=== PATIENT | female | born 1995 | race Caucasian/White ===

== ENCOUNTER 2021-02-02 21:21 | Emergency (ER) | payer OTHER, SELFPAY ==
--- NOTE | ~2021-02-02 | CT_ITS ---
EXAMINATION: CT abdomen pelvis w con DATE: 02/03/2021 02:07 INDICATION: Right lower quadrant abdominal pain TECHNIQUE: Computed tomography (CT) of the abdomen and pelvis was performed with 100 cc Omnipaque 350 intravenous contrast. Automated exposure control and iterative reconstruction technique were employe d. Exam dose: 1691.04 mGy-cm total exam DLP. COMPARISON: None. FINDINGS: Morbid obesity. Included lower lung zones are clear. No pericardial or pleural effusion. Cardiomegaly. Small sliding hiatal hernia. The liver, gallbladder, bile ducts, pancreas, pancreatic duct, spleen, and adrenal glands and kidneys appear unremarkable. No urinary tract calculus or hydroureteronephrosis. The uterus, adnexal areas a nd urinary bladder are unremarkable. Normal caliber of the abdominal aorta. No intraperitoneal or retroperitoneal or pelvic mass lesion or adenopathy or ascites. Mild colonic diverticulosis; no CT evidence of diverticulitis. The appendix is not identified. There is no evidence of appendicitis. No bowel obstruction, bowel wall thickening, pneumatosis or intraperi toneal free air. Small fat-containing umbilical hernia. Included skeletal structures are unremarkable. IMPRESSION: No significant abnormality Reviewed, dictated and finalized at [facility]. Reviewed, dictated and finalized at [facility]. IMPRESSION: No significant abnormality
[2021-02-02 21:55] VITALS: BP 138/84; PULSE 94; RESP 18; TEMP 36.9; O2SAT 100
[2021-02-02 23:01] LABS: Basophils Percent Auto 0.3 % (0.2-1.2); Eosinophils Absolute Auto 0.1 K/mm3 (0-0.3); Eosinophils Percent Auto 1.3 % (0-4.4); Hematocrit 41.5 % (37.0-47.0); Hemoglobin 13.3 g/dL (12.0-15.0); Immature Granulocyte Absolute 0.03 K/mm3 (0.00-0.031); Immature Granulocyte Percent A 0.3 % (0-0.5); Lymphocytes Percent Auto 37.2 % (18.3-44.2); Mean Corpuscular Hemoglobin 28.1 pg (26-34); Mean Corpuscular Volume 87.7 fl (80-100); Mean Platelet Volume 10.6 fl (7.4-10.4); Monocytes Absolute Auto 0.9 K/mm3 (0.1-0.6); Monocytes Percent Auto 8.3 % (2.6-8.5); Neutrophils Absolute Auto 5.4 K/mm3 (1.3-6.7); Neutrophils Percent Auto 52.6 % (45.5-73.1); Platelet Count Result 278 k/mm3 (150-375); Red Blood Count 4.73 M/mm3 (4.2-5.4); Red Cell Distribution Width 14.6 % (11.5-14.5); White Blood Count 10.2 K/mm3 (4.5-10.0)
[2021-02-02 23:15] LABS: Alanine Aminotransferase 38 U/L (4-35); Albumin Level 4.1 g/dL (3.5-5.1); Alkaline Phosphatase 122 U/L (38-126); Anion Gap 7 mmol/L (8-16); Aspartate Amino Transferase 30 U/L (14-36); Bilirubin,Total 0.4 mg/dL (0.2-1.3); Blood Urea Nitrogen 14 mg/dL (7-17); Calcium 8.8 mg/dL (8.4-10.2); Carbon Dioxide 28 mmol/L (22-30); Chloride 104 mmol/L (98-107); Estimated CRCL calculation 139 ml/min; Estimated Glomerular Filt Rate > 60; Glucose 98 mg/dL (65-110); Lipase 124 U/L (23-300); Potassium 4.3 mmol/L (3.4-5.0); Sodium 139 mmol/L (137-145)
[2021-02-03 00:14] VITALS: BP 124/83; PULSE 85; RESP 22; TEMP 36.7; O2SAT 98
--- NOTE | 2021-02-03 00:20 | ED.ABDPAIN ---
HPI - Abdominal Pain General Chief Complaint: Abdominal Pain Stated Complaint: right lower quadrant pain Time Seen by Provider: 02/02/21 23:43 Source: patient History of Present Illness HPI narrative: Patient presents with right lower quadrant abdominal pain. Reports symptoms started today today and has been worsening. Pain is sharp, constant, no radiation, is alleviated with pressure to the area worse with walking around. Reports her symptoms associated with nausea and vomiting she denies diarrhea or fevers. She denies prior abdominal surgeries denies any urinary symptoms vaginal bleeding or vaginal discharge Related Data Allergies Allergy/AdvReac Type Severity Reaction Status Date / Time No Known Allergies Allergy Verified 02/03/21 01:11 Review of Systems Review of Systems: CONSTITUTIONAL: Denies fever, chills, or sweats. EYES: Denies visual changes, redness, or discharge. ENT: Denies rhinorrhea, congestion, sore throat, or otalgia. CARDIOVASCULAR: Denies chest pain, palpitations, or edema. RESPIRATORY: Denies cough or dyspnea. GASTROINTESTINAL: Patient ports abdominal pain and nausea and vomiting GENITOURINARY: Denies dysuria or hematuria. SKIN: Denies rash or itching. MUSCULOSKELETAL: Denies back pain, joint pain, or myalgia. NEUROLOGIC: Denies headache, numbness, dizziness, or weakness. PSYCHIATRIC: Denies anxiety or depression. All systems reviewed & are unremarkable except as noted in HPI and below PMFSH Social History Social History (Updated 02/03/21 @ 00:22 by Pankaj Maldonado MD) Smoking status: Never smoker Substance use type: does not use Exam Narrative: GENERAL: Well-appearing, well-nourished, and in no acute distress. HEAD: Normocephalic, atraumatic. EYES: PERRLA and EOMI. ENT: Nares clear, no rhinorrhea or epistaxis. Mucous membranes moist. NECK: Supple. No masses. No JVD ABDOMEN: Moderate tenderness in the right lower quadrant soft, nondistended. EXTREMITIES: Normal range of motion. No edema. SKIN: Warm, dry, no rash. NEURO: No focal deficits. Alert and oriented x3. PSYCH: Normal mood and affect. Course Reevaluation(s) Reevaluation #1: Patient resting comfortably results and plan reviewed with patient. Patient comfortable with outpatient plan. Date: 02/03/21 Time: 03:06 Vital Signs Vital signs: Vital Signs Temperature 36.9 C 02/02/21 21:55 Pulse Rate 94 02/02/21 21:55 Respiratory Rate 18 02/02/21 21:55 Blood Pressure 138/84 02/02/21 21:55 Pulse Oximetry 100 02/02/21 21:55 Temperature 36.7 C 02/03/21 00:14 Pulse Rate 91 02/03/21 02:54 Respiratory Rate 18 02/03/21 02:54 Blood Pressure 145/80 H 02/03/21 02:54 Pulse Oximetry 98 02/03/21 00:14 MDM - Abdominal Pain MDM Narrative Medical decision making narrative: H&P as above, vss, pt looks clinically well, exam tenderness in the right lower quadrant, labs clinically unremarkable, img clinically unremarkable, additional labs/img considered, symptomatic relief available as needed, on reevaluation pt continues to looks clinically well. Symptoms remain of unclear etiology, dns appendicitis, perforation, bowel obstruction, ureteral stone, pancreatitis, cholecystitis, pyelonephritis. plan to tx/monitor as op w/ pcm f/u findings/plan discussed with pt, pt agree/comfortable with plan, return precautions given Lab Data Result diagrams: 02/02/21 22:51 02/02/21 22:51 Labs: Lab Results 02/02/21 02/02/21 02/02/21 Range/Units 22:51 22:51 22:51 WBC 10.2 H (4.5-10.0) K/mm3 RBC 4.73 (4.2-5.4) M/mm3 Hgb 13.3 (12.0-15.0) g/dL Hct 41.5 (37.0-47.0) % MCV 87.7 (80-100) fl MCH 28.1 (26-34) pg MCHC 32.0 (32-36) g/dl RDW 14.6 H (11.5-14.5) % Plt Count 278 (150-375) k/mm3 MPV 10.6 H (7.4-10.4) fl Immature Gran % (Auto) 0.3 (0-0.5) % Neut % (Auto) 52.6 (45.5-73.1) % Lymph % (Auto) 37.2 (18.3-44.2) % Morrow % (Auto) 8.3 (2.6
[2021-02-03 00:23] LABS: Beta HCG Quantitative < 2.39 mIU/ML
[2021-02-03 00:42] LABS: Add Urine Microscopic? YES; Appearance Urine Clear (Clear); Bilirubin Urine Negative (Negative); Blood Urine Negative (Negative); Color Urine Yellow (Yellow); Glucose Urine UA Negative (Negative); Ketones Urine Negative (Negative); Leukocyte Esterase Ur Negative LEU/UL (Negative); Mucus Urine Rare /lpf; Nitrate Urine Negative (Negative); Protein Urine Negative (Negative); Specific Grav Ur 1.023 (1.001-1.035); Squamous Epithelial Cell Urine Many /hpf (Few); WBC Urine 0-3 /hpf
--- NOTE | 2021-02-03 01:18 | PC.NURSE ---
This RN called lab, spoke with wojciech, to add on urine test to specimen in lab.
[2021-02-03 01:28] LABS: Pregnancy On Board Control Positive; Urine Pregnancy Test Negative
--- NOTE | 2021-02-03 01:49 | PC.NURSE ---
Pt to imaging at this time.
[2021-02-03 02:54] VITALS: BP 145/80; PULSE 91; RESP 18
== END 2021-02-03 03:31 | disposition home or self-care (01) ==
PROVIDERS: Emergency Medicine; Emergency Provider Emergency Medicine
DX: R10.31 Right lower quadrant pain (principal)
CPT/HCPCS: 36415; 74177; 80053; 81001; 81025; 83690; 84702; 85025; 99284; Q9967

== ENCOUNTER 2022-01-09 17:40 | Emergency (ER) | payer SELFPAY ==
[2022-01-09 17:46] VITALS: BP 137/91; PULSE 88; RESP 16; TEMP 37.1; O2SAT 100
[2022-01-09 17:53] VITALS: BP 137/91; PULSE 88; RESP 16; TEMP 37.1; O2SAT 100
--- NOTE | 2022-01-09 18:08 | ED.URI ---
HPI - URI/Sore Throat General Chief Complaint: Upper Respiratory Infection Stated Complaint: Sore Throat Time Seen by Provider: 01/09/22 18:08 History of Present Illness HPI Narrative: 26-year-old female presented for complaint of sore throat and fever today. Endorses postnasal drainage, occasional nonproductive cough and pain with coughing. She denies shortness of breath, wheezing, nausea, vomiting. She denies sick contacts. She has not taken anything for symptoms today. Related Data Allergies Allergy/AdvReac Type Severity Reaction Status Date / Time No Known Allergies Allergy Verified 01/09/22 17:52 Review of Systems Review of Systems: ROS negative except as in HPI [facility] Social History Social History Smoking status: Never smoker Substance use type: does not use Exam Narrative: GENERAL: Well-appearing. EYES: conjunctivae clear ENT: Mucous membranes moist. TMs pearly payan with normal light reflex bilaterally; no tragal tenderness. Oropharynx erythematous without lesions. No drooling, no hoarseness, no trismus, uvula midline. No tripod positioning, hot potato voice, or soft palate swelling. NECK: Supple. No lymphadenopathy CHEST: Clear to auscultation, breath sounds equal. HEART: Regular rate and rhythm. No murmur heard. SKIN: Warm, dry, no rash. NEURO: Alert and oriented x3. Course Course Emergency Course: Patient is aware of diagnosis, understands and agrees to treatment plan. Anticipatory guidance given. Patient agrees to follow-up as directed and is aware of reasons to seek care at the emergency department. Portions of this record may have been created with voice recognition software Level of Care: Express Care Visit Vital Signs Vital signs: Vital Signs Temperature 98.7 F 01/09/22 17:46 Pulse Rate 88 01/09/22 17:46 Respiratory Rate 16 01/09/22 17:46 Blood Pressure 137/91 H 01/09/22 17:46 Pulse Oximetry 100 01/09/22 17:46 Oxygen Delivery Room Air 01/09/22 17:46 Temperature 98.7 F 01/09/22 17:53 Pulse Rate 88 01/09/22 17:53 Respiratory Rate 16 01/09/22 17:53 Blood Pressure 137/91 H 01/09/22 17:53 Pulse Oximetry 100 01/09/22 17:53 Oxygen Delivery Room Air 01/09/22 17:53 MDM - URI/Sore Throat MDM Narrative Medical decision making narrative: strep result reviewed with pt. Advise supportive treatments and s/s to go to the ER. Patient is appropriate for outpatient treatment and follow-up. Differential Diagnosis Differential diagnosis: Likely upper respiratory infection, viral infection and pharyngitis Lab Data Labs: Strep Screen Presumptive Negative *(Reference Range: Negative)* Discharge Plan Discharge Clinical Impression: Pharyngitis Patient Disposition: Home, Self-Care Condition: Stable Additional Instructions: Rapid strep swab was negative today You will be notified in a few days if the culture comes back positive for strep, and appropriate antibiotics will be called in at that time. if symptoms are due to a viral illness, it is not treated with antibiotics. Viral symptoms can be present for up to 10-14 days. Recommend Flonase spray and Zyrtec for sinus drainage Cough syrup may cause drowsiness; avoid driving or take it at night time. Tylenol 1000mg every 8 hours as needed for pain/fever Soft foods, cool liquids, warm tea. Gargle with warm saltwater twice a day. Rest and stay hydrated. --Follow up with your PCP if symptoms are not improving, or sooner if symptoms are worsening. Go to the ER immediately if you cannot swallow your saliva, trouble breathing/wheezing, throat swelling, pain is persistent and severe Prescriptions: New prednisone 20 mg tablet 20 mg PO BIDWMEAL Qty: 5 0RF Follow-up/Referrals: PHYSICIAN,CONCRETE PRECAST MOULDER [Primary Care Provider] - Stand Alone Forms: Work/School Release
== END 2022-01-09 18:19 | disposition home or self-care (01) ==
PROVIDERS: Emergency Provider Nurse Practitioner Family
DX: J02.9 Acute pharyngitis, unspecified (principal)
CPT/HCPCS: 87081; 87880; 99213; G0463

== ENCOUNTER → 2022-12-06 08:04 | Outpatient (CLI) | payer OTHER, SELFPAY ==
--- NOTE | ~2022-12-06 | MMUS_ITS ---
EXAMINATION: MM diagnostic jesús BI w [place], US breast LT limited HISTORY: Palpable, painful, and enlarging lump in the subareolar aspect of the left breast TECHNIQUE: Craniocaudal, mediolateral, and mediolateral oblique 3-D tomosynthesis images of the breas ts were performed and synthetic 2-D images were generated. CAD analysis was submitted and interpreted . High resolution limited left breast ultrasound was performed. COMPARISON: None, baseline BREAST PARENCHYMAL COMPOSITION: The breasts are almost entirely fatty. FINDINGS: MAMMOGRAPHIC FINDINGS: Right breast: No suspicious mass, calcification, or architectural distortion are identified to sugges t malignancy. Left breast: There is a 7 mm oval, equal density mass in the subareolar aspect of the left breast cor responding to the palpable abnormality of concern. ULTRASOUND: There is an 8 mm x 4 mm oval, parallel, hypoechoic mass with questionable linear margins at the 7:30 location of the breast near the nipple corresponding to the palpable abnormality of concern. IMPRESSION: 1. Indeterminate left breast mass. 2. Although finding could reflect a complicated cyst, given the history of a painful and enlarging ma ss, ultrasound-guided biopsy is recommended. BI-RADS category 4, suspicious findings. Reviewed, dictated and finalized at [facility]. IMPRESSION: 1. Indeterminate left breast mass. 2. Although finding could reflect a complicated cyst, given the history of a pa inful and enlarging mass, ultrasound-guided biopsy is recommended. BI-RADS category 4, suspicious findings.
== END ==
PROVIDERS: PCP Obstetrics & Gynecology; Visit Provider Obstetrics & Gynecology
DX: N63.42 Unspecified lump in left breast, subareolar (principal)
CPT/HCPCS: 76642; 77062; 77066; G0279

== ENCOUNTER 2023-01-04 09:00 | Outpatient (CLI) | payer OTHER, SELFPAY ==
--- NOTE | ~2023-01-04 | US_ITS ---
US breast LT limited DATE: 01/04/2023 10:25 INDICATION: Patient presented for biopsy of 8 x 4 mm oval parallel hypoechoic mass at 7:30 near nippl e, reported on 12/06/2022 limited left breast ultrasound examination TECHNIQUE: Real-time and color flow imaging targeted to 7:30 subareolar area COMPARISON: 12/06/2022 diagnostic bilateral mammogram and limited left breast ultrasound FINDINGS: The area of interest is diminished in size, currently measuring 2 x 4.5 compared to 4.4 x 6 .1 x 7.7 mm on 12/06/2022. The margins are circumscribed. There is some central fatty density which may indicate that this is a lymph node. There is no suspicious shadowing. No internal vascularity. The sonographic features and t he interval decrease in size since 12/16/2022 are consistent with benign process. IMPRESSION: BI-RADS Category 2: Benign finding The lesion of interest has diminished in size since 12/06/2022 and exhibits benign sonographic features ; the biopsy was therefore canceled. Reviewed, dictated and finalized at [facility]. Reviewed, dictated and finalized at [facility]. IMPRESSION: BI-RADS Category 2: Benign finding The lesion of interest has diminished in size since 12/06/2022 and exhibits benig n sonographic features; the biopsy was therefore canceled.
== END 2023-01-04 09:01 | disposition home or self-care (01) ==
PROVIDERS: PCP Obstetrics & Gynecology; Visit Provider Surgery
DX: N63.20 Unspecified lump in the left breast, unspecified quadrant (principal)
CPT/HCPCS: 76642

== ENCOUNTER 2023-10-09 14:12 | Emergency (ER) | payer MEDICAID, SELFPAY ==
[2023-10-09] VITALS (13 sets, daily range): BP systolic 137–162; BP diastolic 64–98; PULSE 82–118; RESP 14–27; TEMP 36.6; O2SAT 95–100
--- NOTE | ~2023-10-09 | CT_ITS ---
EXAMINATION: CT abdomen pelvis w con DATE: 10/09/2023 16:49 INDICATION: RLQ pain TECHNIQUE: Computed tomography (CT) of the abdomen and pelvis was performed with 100 mL Omnipaque-350 intravenous contrast. Automated exposure control and iterative reconstruction technique were employe d. The dose-length product was 1792.16 mGy-cm. COMPARISON: 02/03/2021. FINDINGS: Exam limited by beam hardening and quantum mottle from body habitus. Lower thorax: Mild cardiomegaly. Minimal dependent and basilar scar/atelectasis. Liver: Normal. Biliary/Gallbladder: Gallbladder is normal. No bile duct dilation. Pancreas: No mass or duct dilation. Spleen: Normal. Adrenals:No mass. Kidneys: No suspicious mass, obstructing stone, or hydronephrosis. GI tract: No small or large bowel dilation. Appendix not visualized. Mild scattered diverticulosis wi thout diverticulitis. Mesentery/Peritoneum: No ascites, mass, or free air. Retroperitoneum: No mass. Pelvis: Pelvic organs are within normal limits. Soft Tissues: Small uncomplicated fat-containing umbilical hernia. Bones: No acute osseous finding. IMPRESSION: No acute abdominopelvic process detected. Reviewed, dictated and finalized at [facility].
--- NOTE | ~2023-10-09 | US_ITS ---
EXAMINATION: US abdomen limited DATE: 10/09/2023 17:57 INDICATION: ab pain TECHNIQUE: Multiple grayscale and Doppler ultrasound images of limited portions of the abdomen were o btained. COMPARISON: CT abdomen pelvis, same date. FINDINGS: Examination limited by body habitus. The pancreas was not visualized. The liver is poorly v isualized. Normal hepatopetal flow in the main portal vein. The gallbladder is normal with no abnorma l wall thickening, pericholecystic fluid or stones. The common bile duct measures 6 mm. There was no sonographic Chen sign. IMPRESSION: Limited evaluation, pancreas not visualized and liver are poorly visualized. No sonographic abnormality detected the gallbladder. Reviewed, dictated and finalized at location [facility].
--- NOTE | 2023-10-09 15:20 | ED.NAVMDI ---
HPI - Nausea/Vomiting/Diarrhea General Chief complaint: Nausea/Vomiting/Diarrhea <Kisha Anguiano PA-C - Last Filed: 10/11/23 18:08> Stated complaint: vomiting abd pain <Kisha Anguiano PA-C - Last Filed: 10/11/23 18:08> Time Seen by Provider: 10/09/23 15:20 <Kisha Anguiano PA-C - Last Filed: 10/11/23 18:08> Focused HPI: This is a 28 year old female that presents to the emergency department for upper abdominal pain. Ongoing over the last couple of days. Reports pain in the right upper quadrant. Associated nausea and vomiting. Worse after eating. Reports intermittent fevers as well. GENERAL: Well-appearing, obese, and in no acute distress. HEAD: Normocephalic, atraumatic. CHEST: Clear to auscultation. ?No respiratory distress. HEART: Regular rate and rhythm.? NEURO: ?Alert and oriented x3. Patient screened in triage and initial orders placed.? ?Additional care and disposition to be based upon?diagnostic testing and treatment. <Kisha Anguiano PA-C - Last Filed: 10/11/23 18:08> History of Present Illness HPI Narrative: 28-year-old female presenting emergency department for evaluation of right-sided abdominal pain with associated nausea and vomiting. Patient is worse after eating. Patient denies any pain with urination. Patient does have a prior history of kidney stones but states this is different. <Shane Bradley MD - Last Filed: 10/09/23 21:07> Related Data Allergies/Adverse reactions: Allergies Allergy/AdvReac Type Severity Reaction Status Date / Time No Known Allergies Allergy Verified 12/25/22 10:15 <Kisha Anguiano PA-C - Last Filed: 10/11/23 18:08> Review of Systems Review of Systems: CONSTITUTIONAL: Reports fever GASTROINTESTINAL: Reports abdominal pain, nausea, vomiting <Kisha Anguiano PA-C - Last Filed: 10/11/23 18:08> All systems reviewed & are unremarkable except as noted in HPI and below <Shane rBadley MD - Last Filed: 10/09/23 21:07> [facility] Past Medical History Medical History: Medical History (Updated 10/11/23 @ 18:08 by Kisha Anguiano PA-C) Anxiety Bipolar 1 disorder Depression History of kidney stones <Kisha Anguiano PA-C - Last Filed: 10/11/23 18:08> Surgical History Surgical History: Surgical History History of surgery on arm [place] teeth extracted <Kisha Anguiano PA-C - Last Filed: 10/11/23 18:08> Family History Family History: Family History Grandparent Breast cancer Other Breast cancer Other Cerebrovascular accident Diabetes mellitus Heart disease Hypertension <Kisha Anguiano PA-C - Last Filed: 10/11/23 18:08> Social History Social History: Social History Smoking status: Never smoker Alcohol intake: never Substance use type: does not use Living arrangements: with family Occupation/Education: occupation 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 EYES: PERRLA/EOMI, conjunctivae clear. NOSE: Normal no drainage EARS:TMS clear with good light reflex. THROAT: Pharynx clear, no exudate. NECK: Supple. No adenopathy, no masses. RESPIRATORY: Airway patent, respirations nonlabored. Clear to auscultation bilaterally, no rales, rhonchi, wheezing. CARDIOVASCULAR: Regular rate and rhythm without murmurs rubs or gallops. ABDOMINAL: tenderness to right upper and right lower quadrant. greater in right lower quadrant MUSCULOSKELETAL: Moves all extremities. Strength/ROM intact, No edema, No calf tenderness. NEURO: Alert. Cranial nerves II through XII intact. grossly intact SKIN: Warm, dry. Normal Color <Shane Bradley MD - Last Filed: 10/09/23 21
[2023-10-09 15:40] LABS: Basophils Percent Auto 0.3 % (0.2-1.2); Eosinophils Absolute Auto 0.2 K/mm3 (0-0.3); Eosinophils Percent Auto 2.4 % (0-4.4); Hematocrit 40.8 % (37.0-47.0); Hemoglobin 12.8 g/dL (12.0-15.0); Immature Granulocyte Absolute 0.02 K/mm3 (0.00-0.031); Immature Granulocyte Percent A 0.3 % (0-0.5); Lymphocytes Percent Auto 33.6 % (18.3-44.2); Mean Corpuscular HGB Conc 31.4 g/dl (32-36); Mean Corpuscular Hemoglobin 26.9 pg (26-34); Mean Corpuscular Volume 85.9 fl (80-100); Mean Platelet Volume 10.7 fl (7.4-10.4); Monocytes Absolute Auto 0.6 K/mm3 (0.1-0.6); Monocytes Percent Auto 9.3 % (2.6-8.5); Neutrophils Absolute Auto 3.4 K/mm3 (1.3-6.7); Neutrophils Percent Auto 54.1 % (45.5-73.1); Platelet Count Result 247 k/mm3 (150-375); Red Blood Count 4.75 M/mm3 (4.2-5.4); Red Cell Distribution Width 15.3 % (11.5-14.5); White Blood Count 6.3 K/mm3 (4.5-10.0)
[2023-10-09 15:53] LABS: Appearance Urine Cloudy (Clear); Bacteria Urine 3+ /hpf; Bilirubin Urine Negative (Negative); Blood Urine 1+ (Negative); Color Urine Yellow (Yellow); Glucose Urine UA Negative (Negative); Ketones Urine Trace mg/dL (Negative); Leukocyte Esterase Ur Trace LEU/UL (Negative); Nitrate Urine Negative (Negative); Non Pathogenic Casts 0-2; Protein Urine Trace mg/dL (Negative); Specific Grav Ur 1.022 (1.001-1.035); Squamous Epithelial Cell Urine Many /hpf (Few); pH Urine 5.5 (5.0-9.0)
[2023-10-09 15:57] LABS: Alanine Aminotransferase 87 U/L (6-35); Alkaline Phosphatase 113 U/L (38-126); Anion Gap 6 mmol/L (4-12); Aspartate Amino Transferase 76 U/L (14-36); Bilirubin,Total 0.5 mg/dL (0.2-1.3); Blood Urea Nitrogen 8 mg/dL (7-17); Calcium 8.6 mg/dL (8.4-10.2); Carbon Dioxide 29 mmol/L (22-30); Chloride 103 mmol/L (98-107); Estimated CRCL calculation 158 ml/min; Estimated Glomerular Filt Rate > 60; Glucose 111 mg/dL (65-110); Lipase 70 U/L (23-300); Potassium 3.5 mmol/L (3.4-5.0); Sodium 138 mmol/L (137-145)
[2023-10-09 15:59] LABS: Add Urine Microscopic? YES
[2023-10-09] MEDS: ONDANSETRON INJ 4 MG/2 ML VIAL IV PUSH (16:34)
[2023-10-09] MEDS: HYDROmorphone HCL INJ (*CRX) 1 MG/ML SYR 0.5 MG IV PUSH (16:35)
== END 2023-10-09 18:30 | disposition home or self-care (01) ==
PROVIDERS: Physician Assistant; Emergency Provider Emergency Medicine
DX: R10.10 Upper abdominal pain, unspecified (principal); Z87.442 Personal history of urinary calculi
CPT/HCPCS: 36415; 74177; 76705; 80053; 81001; 81025; 83690; 85025; 87086; 87088; 96374; 96375; 99284; J1170; J2405; Q9967

== ENCOUNTER 2024-06-17 15:14 | Emergency (ER) | payer OTHER, SELFPAY ==
[2024-06-17] VITALS (11 sets, daily range): BP systolic 122–153; BP diastolic 57–104; PULSE 94–108; RESP 13–20; TEMP 36.9; O2SAT 94–100
--- NOTE | ~2024-06-17 | CT_ITS ---
EXAMINATION: CT brain wo con DATE: 06/17/2024 16:33 INDICATION: Head injury, syncope, lightheaded dizziness . TECHNIQUE: Computed tomography (CT) of the head was performed without intravenous contrast. The mA wa s adjusted according to patient size. Iterative reconstruction technique was employed. The dose-lengt h product was 681.00 mGy-cm. COMPARISON: None. FINDINGS: No acute intracranial hemorrhage or extra-axial fluid collection. No hydrocephalus, mass, or herniation. No acute ischemic infarct. Unremarkable dural venous sinus attenuation. No acute osseous abnormality. The aerated spaces are clear. IMPRESSION: No acute intracranial process. Reviewed, dictated and finalized at location K. LOPE MAKER
--- OUTSIDE RECORDS SUMMARY | 2024-06-17 15:17 | XMS_ITS | Data Portability ---
Author Organization [facility] , [facility] Address [address] [place] [address] Assessment No assessment recorded. Plan of Treatment Reminders Order Date Submit Date Provider Last Modified By Organization Details Last Modified Time Details Appointments None recorded. Lab prolactin, serum 2023 kdominick [address] [facility], [address] [place], [address], 15:28:15 test, urine 2023 024 kdominick 1 [facility], [address] [place], [address], 4 15:28:16 unlisted lab - pcos evaluation (high index suspicion) (hc) 2023 024 kdominick [address] [facility], [address] [place], [address], 4 15:28:15 HPV E6+E7 mRNA, qualitative PCR, cervix 2023 024 kdominick [address] [facility], [address] [place], [address], 4 15:28:15 pap, LB 2023 LESLI [facility], [address] [facility], [place], [address], 14:46:27 Referral None recorded. Procedures None recorded. Surgeries None recorded. Imaging US, pelvis, complete 2023 024 [email or web address] [email or web address] [facility], [address] [facility], [place], [address], 5 12:13:19 Medication Orders None recorded. Patient TargetsNo targets recorded. Patient InstructionsNo instructions recorded. Reason for Referral None Reported. Results Created Date Observation Date Name Description Value Unit Range Abnormal Flag Note LastModifiedBy Organization Detail LastModifiedTime 02/22/2002/23/2024 PCOS EVALU ATION (HIGH INDEX SUSPI CION) ([facility] ) DHEA-S 175.8 mcg/d L 25.9 - 460.2 normal [place], [address], 02/23/2024 10:03:34 02/22/2002/23/2024 PCOS EVALU ATION (HIGH INDEX SUSPI CION) ([facility] ) FSH 5.4 mIU/m L Refer ence Range s are for femal es aged 18 years - Adult Magdalena l Menst ruati ng Femal e: Folli cular phase : 2.5-1 0.2 mIU/m L Mid-C ycle Peak: 3.4-3 3.4 mIU/m L Lutea l phase : 1.5-9 .1 mIU/m L Pregn ant: <0.3 mIU/m L Post- menop ausal : 23.0- 116.6 mIU/m L [place], [address], 02/23/2024 10:03:34 02/22/2002/23/2024 PCOS EVALU ATION (HIGH INDEX SUSPI CION) ([facility] ) LH 5.76 U/L Refer ence Range s are for femal es aged 18 years - Adult Magdalena l Menst ruati ng Femal e: Folli cular phase : 1.9-1 2.5 mIU/m L Mid-C ycle Peak: 8.7-7 6.3 mIU/m L Lutea l phase : 0.5-1 6.9 mIU/m L Pregn ant: <0.1- 1.5 mIU/m L Post- menop ausal : 15.9- 54.0 mIU/m L Contr acept chidi: 0.7-5 .6 mIU/m L Not Available [address], [address], 02/23/2024 10:03:34 02/22/2002/23/2024 PCOS EVALU ATION (HIGH INDEX SUSPI CION) ([facility] ) TSH 2.37 mIU/L 0.55 - 4.78 normal Refer ence Range Femal e aged 18-Ad ult: 0.55- 4.78 Pregn indigo Refer ence Range s First Trime ster 0.26- 2.66 Secon d Trime ster 0.55- 2.73 Third Trime ster 0.43- 2.91 Not Available [facility] [address] [place] [address], [address], 02/23/2024 10:03:34 02/22/20 24 02/23/2024 PCOS EVALU ATION (HIGH INDEX SUSPI CION) ([facility] ) T4, free 1.03 NG/dL 0.89 - 1.76 normal Not Available [address], [address], 02/23/2024 10:03:34 02/22/2002/23/2024 PROLA CTIN prolactin 7.2 NG/mL Refer ence Range s Femal e aged 18-Ad ult Nonpr egnan t: 2.8-2 9.2 ng/mL Pregn ant: 9.7-2 08.5 ng/mL Post- menop ausal : 1.8-2 0.3 ng/mL Pregn indigo, lacta tion, and the admin istra tion of oral contr acept chidi can incre ase prola ctin nikita ntrat ions. Not Available [facility] [address] [place] [address], [address], 02/23/2024 10:03:35 02/22/2002/25/2024 HPV HIGH RISK HPV high risk Negati ve negati ve normal The HPV High Risk assay is inten ded for use as co-te sting with cytol ogy and not as a subst itute for regul ar cervi kenrick cytol ogy scree leigh. This assay is not inten ded for use as a scree leigh devic e for women under age 30 with magdalena l cervi kenrick cytol ogy. Not Available [facility] [address] [place], [address], 02/25/2024 18:22:54 02/22/2002/29/2024 THINP REP TIS PAP clinical information: normal Routi ne exam Not Available [address] [place], [address], 02/29/2024 14:46:27 02/22/2002/29/2024 THINP REP TIS PAP LMP: normal NONE GIVEN Not Available [address] [place], [address], 02/29/2024 14:46:27 02/22/2002/29/2024 THINP REP TIS PAP prev. Pap: normal NONE GIVEN Not Available [address] [place], [address], 02/29/2024 14:46:27 02/22/2002/29/2024 THINP REP TIS PAP prev. BX: normal NONE GIVEN Not Available [address] [address] [place], [address], 02/29/2024 14:46:27 02/22/2002/29/2024 THINP REP TIS PAP source: normal Cervi x Not Available [address] [address] [place], [address], 02/29/2024 14:46:27 02/22/2002/29/2024 THINP REP TIS PAP statement of adequacy: normal Satis facto ry for evalu ation . Endoc ervic al/tr ansfo rmati on zone compo nent prese nt. Age and/o r menst rual statu s not provi ded Not Available [address] [address] [place], [address], 02/29/2024 14:46:27 02/22/2002/29/2024 THINP REP TIS PAP interpretati on/result: normal Cytol ogy Resul ts: Negat christian for intra epith elial lesio n or malig rohan . Not Available [address] [address] [place], [address], 02/29/2024 14:46:27 02/22/2002/29/2024 THINP REP TIS PAP comment: normal This case could not be evalu ated with compu ter tamiko rosalio techn ology . The slide was shannan brady scremary cara accor ding to routi ne proce dures . Not Available [address] [address] [place], [address], 02/29/2024 14:46:27 02/22/2002/29/2024 THINP REP TIS PAP cytotechnolo gist: normal PCM, CT( CP) CT Scree leigh Locat ion: [address] [address] [address] [place] [address] Not Available [address] [address] [place], [address], 02/29/2024 14:46:27 02/22/2002/29/2024 THINP REP TIS PAP comment EXPLA NATOR Y NOTE: The Pap is a scree leigh test for cervi kenrick cance r. It is not a diagn ostic test and is subje ct to false negat christian and false posit christian resul ts. It is most relia ble when a satis facto ry sampl e, regul jose e obtai cara, is submi tted with relev ant clini kenrick findi ngs and histo ry, and when the Pap resul t is evalu ated along with histo cristian and curre nt clini kenrick infor matrosalia n. Not Available [facility] [address], [place], [address], 02/29/2024 14:46:27 02/22/20 24 02/22/2024 pregn indigo test, urine HCG negati ve Not Available [facility] [address] [facility], [place], [address], 02/22/2024 14:36:33 03/16/20 24 03/11/2024 US pelvi c non OB comp ta+TV [facility] [place] [address] [facility] [address] [place] [address] EXAMIN ATION: Pelvic Ultras ound REPORT DATE: 2023 9:04 AM INDICA TION: SECOND MIRA AMENOR MARGARITO Date of last menstr ual period : 024 COMPAR SHANKAR(S ): None. TECHNI QUE: Transa bdomin al and transv aginal ultras ound of the pelvis . Adnexa l duplex imagin g perfor med. FINDIN GS: Limite d assess ment due to patien t body habitu s. UTERUS : Anteve rted, measur ing 7.0 x 2.8 x 4.6 cm. Myomet rium: Normal . Cervix : Normal . Endome trium: 1.0 cm in thickn ess. Normal appear ance. RIGHT OVARY: Not seen. No apprec iated adnexa l mass. LEFT OVARY: Suspec rosalio left ovary measur es 2.0 x 1.5 x 1.3 cm. Normal morpho logy. Normal color Dopple r. FREE FLUID: No visual ized free fluid. Referr ed By: SUPRIYA DC CK Electr onical ly Signed By: Darling Cummings DO on 2023 9:09 AM Interp reted By: Darling Cummings DO, 2023 9:04 AM LESLI [facility] [address] [place], [address], 03/19/2024 12:40:56 Result Notes None recorded. Procedures Surgical History Date Name Laterality Status Provider Name and Address Organization Details Recorded Time 02/22/20 24 Date of Last Pap Smear completed DENISE CAMEJO DO [address] [facility] [address], [place], [address], [employer] [facility] 02/28/2024 15:13:08 [facility] [employer] [facility] 02/22/2024 13:49:20 extraction of wisdom tooth completed [facility] [employer] IV 02/22/2024 13:49:30 Imaging Results Imaging Date Name Status LastModified by Organiz ation Details LastModified Time 03/11/2024 pelvic non OB comp ta+TV completed [facility] [address] [facility], [place], [address], 03/19/2024 12:40:56 Procedure Notes None recorded. Medical Equipment None Reported. Allergies No known drug allergies Medications Name Sig Start Date Stop Date Status Note LastModified by Organization Details LastModified Time azithromyci n 250 mg tablet 02/21 completed Not Available Not Available Not Available ibuprofen 800 mg tablet TAKE 1 TABLET BY MOUTH EVERY 8 HOURS WITH FOOD NEEDED 02/21 completed Not Available Not Available Not Available oseltamivir 75 mg capsule TAKE 1 CAPSULE BY MOUTH EVERY 12 HOURS FOR 5 DAYS 02/21 completed Not Available Not Available Not Available albuterol sulfate HFA 90 mcg/actuati on aerosol inhaler INHALE 2 PUFFS EVERY 6 HOURS NEEDED FOR WHEEZING OR SHORTNESS OF BREATH 02/21 completed Not Available Not Available Not Available ondansetron 4 mg disintegrat ing tablet DISSOLVE 1 TABLET ON THE TONGUE EVERY 8 HOURS NEEDED FOR NAUSEA OR VOMITING 02/21 completed Not Available Not Available Not Available rizatriptan 5 mg tablet TAKE 1 TABLET BY MOUTH AT ONSET OF MIGRAINE. MAY REPEAT DOSE IN 2 HOURS NEEDED. 02/21 completed Not Available Not Available Not Available Vitals Date Recorded Body weight Body mass index (BMI) Body height Systolic blood pressure Diastolic blood pressure Provider Name and Address Organization Details Last Updated DateTime 02/22/2024 391102. 87 g 72.7 kg/m2 165.1 cm 110 mm[Hg] 60 mm[Hg] Darling Retan[facility]ar[facility] [employer] 13:57:02 Social History Question Answer Notes LastModified by Organizat ion Details LastModified Time Tobacco Smoking Status Never Smoker Darling Finleylee null, [employer] 02/22/2024 13:48:38 What Is Your Level Of Alcohol Consumption? None Information not available 02/22/2024 Are You Blind Or Do You Have Difficulty Seeing? No Information not available 02/22/2024 Are You Deaf Or Do You Have Serious Difficulty Hearing? No Information not available 02/22/2024 What Type Of Diet Are You Following? REGULAR Information not available 02/22/2024 How Many Children Do You Have? 0 Information not available 02/22/2024 What Is Your Relationship Status? Information not available 02/22/2024 Are You Sexually Active? Yes Information not available 02/22/2024 Do You Use Any Illicit Or Recreational Drugs? No Information not available 02/22/2024 Do You Or Have You Ever Used Any Other Forms Of Tobacco Or Nicotine? No Information not available 02/22/2024 Sex: Unknown Functional Status Question Answer Note LastModified by Organization D etails LastModified Time What is your exercise level? Moderate Information not available 02/22/2024 Mental Status None recorded. Family History Relationship Description Onset Age of this Age Resolved Age Notes LastModified by Organization Details LastModified Time Maternal Grandmother Malignant tumor of breast apietiukiewic z Not available 02/22/2024 13:46:49 Maternal Grandmother Adenocarcino ma of cervix [employer]ukiewic z Not available 02/22/2024 13:47:32 Mother Adenocarcino ma of cervix apietiukiewic z Not available 02/22/2024 13:47:22 Mother Malignant neoplasm of uterus apietiukiewic z Not available 02/22/2024 13:48:00 Maternal Aunt Adenocarcino ma of cervix apietiukiewic z Not available 02/22/2024 13:47:40 Medical History Condition Response Anxiety Disorder Y Depression Y Gynecological History Statement/Question Response Date of Last Pap Smear 02/22/2024 Date of last HPV 02/22/2024 Current Control Method None Date of LMP 10/14/2023 Obstetrics History GPAL:G 0 P 0 0 0 0 Past Encounters Encounter ID Performer Location Encounter Start Date Encounter Closed Date Diagnosis/Indication Diagnosis SNOMED-CT Code Diagnosis ICD10 Code Diagnosis Note [id number] DENISE BASHIR, DO [facility] [address] [place] [address] 02/22/2024 13:24:52 02/29/2024 14:54:38 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 Pt states periods are typically regular in timing and monthshe has lost significan t weight over hte last year> 100 lbs and is concerned that is the cause.disc ussed with patient that usually weight loss helps to regulate menstrual cyclerecen tly had bloodwork done with PCP for metabolic syndromes and everything was normal likely due to lifestyle changescur rently not on any form of contracept ionPCOS labs ordered; highly unlikely as patient has always had regular periodsUS to be completed at [facility] thirty minutes spent with patient in consultati on (>50% face-to-fa ce). Patient labs and notes were reviewed. Patient questions were answered. Additional patient care was coordinate d. Screening for malignant neoplasm of cervix 698948491 Z12.4 Health Concerns Section Related Observation LastModified by Organization Detai ls LastModified Time None Recorded Concern Status LastModified by Organization Details LastModified Time None Recorded Advance Directives Directive None Recorded Payers Encounter Date Sequence Insurance Name Policy Number Policy [place] Covered Member ID [place] Member ID Guarantor Name 02/22/2024 1 [facility] (MEDICAID HMO) [id number] Rebecca Wright [id number] Rebecca Wright Notes Date Note Type Note Provider Name and Address Organization Details Recorded Time 02/22/2024 text/html AmenorrheaReport ed bypatient.Onset/Timing: no menses for 4-6 months Context:negative testIrregular PeriodsReported bypatient.Onset/Timin-5 cycles Quality:clots Duration:7 days/month Associated Symptoms:no fatigue; no irritability; good quality of life Patient here today due to a ref. from primary for absent cycle and PCOS consult with lab work due to the lack of cycle and hair growth on face, chin, neck and nipples, irritable and hot flashes. Patient states it is hard to lose weight as well. Patient lost 100 lbs in a little over a year due to Ozempic. It was originally thought by primary doctor that the lack of period was from the weight loss but now the PCP is questioning PCOS and she ref to us for that reason per patient. UPT at Primary negative as well. DENISE CAMEJO DO [address] [facility] [address], [place], [address], [facility] IV 02/28/2024 15:28:30 OBGyn Episode No OBEpisode recorded.
--- OUTSIDE RECORDS SUMMARY | 2024-06-17 15:18 | XMS_ITS | Encounter Summary ---
Author Organization [facility] Address [facility] [place] [address] Care Team Providers Care Photographic Developer And Printer Name Role Phone Lay Clark CONTROL OPERATOR [employer] Primary Care Provider [phone] Encounter Details Date Type Department Care Team (Late st Contact Info) Description 04/24/2024 [employer] Message [facility] [place] [address] [facility] [address] [place], [place] [id number] Lay Clark, CONTROL OPERATOR FLOW COAT [address] [facility] [address] [address] [place] [address] Sleep machine? Social History Tobacco Use Types Packs/Day Years Used Date Smoking Tobacco: Never Smokeless Tobacco: Never Alcohol Use Standard Drinks/Week Comments Not Currently 0 (1 standard drink = 0.6 oz pur e alcohol) PHQ-2 Answer Date Recorded Patient Health Questionnaire-2 Score 0 01/23/2024 Comments No Sex and Gender Information Value Date Recorded Sex Assigned at Not on file Legal Sex Female 8:26 AM CDT Gender Identity Not on file Sexual Orientation Not on file documented as of this encounter Plan of Treatment Upcoming Encounters Date Type Department Care Team (Late st Contact Info) Description 06/18/2024 12:40 PM [employer] 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 [place] [address] Lay Clark, CONTROL OPERATOR FLOW COAT [address] [facility] [address] [address] [place], [place] [id number] documented as of this encounter Visit Diagnoses Not on filedocumented in this encounter Care Teams Photographic Developer And Printer Relationship Specialty Start Date End Date Lay Clark, CONTROL OPERATOR FLOW COAT [address] [facility] [address] [place] [address] PCP - General NURSE PRACTITIONER 01/23/24 documented as of this encounter
--- OUTSIDE RECORDS SUMMARY | 2024-06-17 15:18 | XMS_ITS | Data Portability ---
Author Organization - [facility], [facility] Address [address] [place] [address] Care Team Providers Care Applications Instructor Name Role Phone JIN RODRIGES Ultrasound Manager [phone] VALENTINO BELTRAN Ultrasound Manager Assessment No assessment recorded. Plan of Treatment Reminders Order Date Submit Date Provider Last Modified By Organization Details Last Modified Time Details Appointments None recorded. Lab None recorded. Referral physical therapist referral - 3days/2wks 2018 019 [facility], [address], [place], [address], 9 18:15:11 Procedures None recorded. Surgeries None recorded. Imaging XR, calcaneus, 2 or more view 2018 019 [id number] 4 In-Office Order, Internal Use Only DO Not Attach Compendium DO Not Attach Compendium, Do Not Delete/merge, [id number] 9 18:13:09 XR, ankle, 3 or more view 2018 019 [email or web address] 4 In-Office Order, Internal Use Only DO Not Attach Compendium DO Not Attach Compendium, Do Not Delete/merge, [id number] 9 18:13:09 Medication Orders Mobic 15 mg tablet 2018 019 INTERFACE [facility], [address], [place], [address], 9 18:07:08 Nexium 20 mg capsule,de layed release 2018 019 INTERFACE [facility], [address], [place], [address], 9 18:07:03 diclofenac 1.5 % topical drops 2018 019 INTERFACE [facility], [address], [place], [address], 9 18:06:59 Patient TargetsNo targets recorded. 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 There was some concern there was a calcaneal avulsion fracture but I did not see any on our x-rays. I believe she has a simple ankle sprain. She is swollen and tender. I will begin physical therapy. I will give her Mobic for inflammation, Nexium to cover her stomach and diclofenac drops to rub on her ankle. I will keep her on sedentary duty and see her back in 2 weeks. [email or web address] Not available 05/15/2018 18:05:28 05/29/2018 [id number] work status report* [email or web address] Not available 06/05/2018 15:28:51 The patient is doing excellent and her pain and swelling have completely resolved. She is MMI today with a PPI 0%. Today I will release her from the clinic to regular duty at work with no restrictions. I will see her back on an as-needed basis. [email or web address] Not available 05/29/2018 17:26:20 Reason for Referral Physical Therapist Referral for Sprain of ankle 3days/2wks Referring Physician: Jacki Simmons, Orthopedic Surgery, Encounter Date: 05/15/2018 Results Created Date Observation Date Name Description Value Unit Range Abnormal Flag Note LastModifiedBy Organization Detail LastModifiedTime Result Notes None recorded. Problems No Known Problems Procedures Surgical History Date Name Laterality Status Provider Name and Address Organization Details Recorded Time 9 Fracture Surgery completed Tammie Cabrera [place] - [facility] 05/15/2018 17:15:03 Imaging Results None recorded. Procedure Notes None recorded. Medical Equipment None Reported. Allergies No known drug allergies Medications Name Sig Start Date Stop Date Status Note LastModified by Organization Details LastModified Time Depo-Medrol 20 mg/mL suspension for injection active Not Available Not Available No t Available Nexium 20 mg capsule,thelma yed release Take 1 capsule twice a day by oral route. active Not Available Not Available Not Avai lable Mobic 15 mg tablet Take 1 tablet every day by oral route. active Not Available Not Available Not Avai lable diclofenac 1.5 % topical drops APPLY 40 DROPS TO THE AFFECTED KNEE(S) BY TOPICAL ROUTE 4 TIMES PER DAY active Not Available Not Available Not Avai lable Vitals Date Recorded Body height Body mass index (BMI) Body weight Provider Name and Address Organization Details Last Updated DateTime 05/15/2018 165.1 cm 63.2 kg/m2 381421.1 g Tammie Cabrera [facility] 05/15/2018 17:14:39 Date Recorded Body height Body mass index (BMI) Body weight Provider Name and Address Organization Details Last Updated DateTime 05/29/2018 165.1 cm 63.2 kg/m2 082496.1 g Jacki Simmons MD [address] [place] [address], [place], [address], [facility] 05/29/2018 16:58:31 Social History Question Answer Notes LastModified by Organizat ion Details LastModified Time Tobacco Smoking Status Never Smoker Tammie Cabrera null, [facility] 05/15/2018 17:14:58 What Is Your Level Of Alcohol Consumption? Occasional Information not available 05/15/2018 Auto Related Injury? No Information not available 05/15/2018 Is Blood Transfusion Acceptable In An Emergency? Yes Information not available 05/15/2018 Are You Currently Employed? Yes Information not available 05/15/2018 Currently No Information not available 05/15/2018 Who Is Your Employer? 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 Right Information not available 05/15/2018 Date Of Injury Or Duration Of Symptoms 05/14/18 Information not available 05/15/2018 Have You Seen Anyone Else Regarding This Condition [facility] Information not available 05/15/2018 Marital Status Single Informatio n not available 05/15/2018 What Was The Date Of Your Most Recent Tobacco Screening? 05/29/2018 Information not available 11/21/2018 If Injured, Is Litigation Ongoing? No Information not available 05/15/2018 How Much Tobacco Do You Smoke? No Information not available 05/15/2018 Work Related Injury? Yes Information not available 05/15/2018 Sex: Unknown Functional Status None recorded. Mental Status None recorded. Family History Nothing Reported. Medical History Condition Response Diabetes N Colorectal Cancer Screening N Heart Problems N Bleeding Disorder N Gout N Anxiety/Depression Y Osteoarthritis N Seizures/Epilepsy N Blood Clot N AIDS/HIV N Cancer N Stroke N Pacemaker N Anemia N Hepatitis N Liver Disease N Ulcers N Heart Attack (ID) N Rheumatoid Arthritis N Pulmonary Embolism N Hypertension N Osteoporosis N Kidney Disease N Gynecological HistoryNo gynecological history recorded. Obstetrics History GPAL:G 0 P 0 0 0 0 Past Encounters Encounter ID Performer Location Encounter Start Date Encounter Closed Date Diagnosis/Indication Diagnosis SNOMED-CT Code Diagnosis ICD10 Code Diagnosis Note [id number] MD [facility] [address] [phone] 05/15/2018 17:02:29 05/15/2018 18:13:09 Sprain of ankle 91760499 S93.401A Foot pain 54425155 79.6 71 [id number] MD [facility] [address] [address] 05/29/2018 16:29:08 05/29/2018 17:28:02 Sprain of ankle 30726231 S93.401D Resolved Health Concerns Section Related Observation LastModified by Organization Detai ls LastModified Time None Recorded Concern Status LastModified by Organization Details LastModified Time None Recorded Advance Directives Directive None Recorded Payers Encounter Date Sequence Insurance Name Policy Number Policy [place] Covered Member ID [place] Member ID Guarantor Name 05/15/2018 *SELF PAY* [employer] Rebecca Wright 05/29/2018 JAI [employer] Rebecca Wright Notes Date Note Type Note Provider Name and Address Organization Details Recorded Time 05/15/2018 text/html Rebecca comes in the clinic today for treatment and evaluation of her right ankle. She states that she slipped and rolled her ankle last night at work. She has been having pain and tenderness to her lateral and medial ankle. She [facility] She states they placed her in a boot. she states that the pain is a dull achy type pain. She states that she has pain with weightbearing or walking. She has got no relief from the pain. She denies any numbness or tingling. Jacki Simmons MD [address], [place], [address], [facility] 05/15/2018 18:07:13 05/29/2018 text/html Rebecca comes in the clinic today for follow-up of her right ankle. She states that she slipped and rolled her ankle 15 days ago at work. She had pain and tenderness to her lateral and medial ankle. She said [facility] She states they placed her in a boot. At the last visit we kept her in the fracture boot and prescribe Mobic on Nexium for GI coverage. We also prescribed diclofenac drops and placed on sedentary duty. She reports today that she is 100% improved and that her pain and swelling have completely resolved. We did order physical therapy but she did not go due to the kul-ib-[id number] expense. She reports that her pain did resolve with medication. She has returned to regular duty at work with no complaints and no residual pain/swelling. She denies any numbness or tingling. Jacki Simmons MD [address], [place], [address], [facility] 05/29/2018 17:26:42 OBGyn Episode No OBEpisode recorded.
--- OUTSIDE RECORDS SUMMARY | 2024-06-17 15:18 | XMS_ITS | Encounter Summary ---
Author Organization [facility] Address [facility] [place] [address] Care Team Providers Care Resistor Tester Name Role Phone Lay Clark MORTAR CARRIER Primary Care Provider [phone] Encounter Details Date Type Department Care Team (Latest Contact Info) Description 03/19/2024 Qbixt Message Enc [facility] [place] [address] [place], [place] [id number] Lay Clark, MORTAR CARRIER [address] [place], [place] [id number] Contrave wasn t covered. Social History Tobacco Use Types Packs/Day Years [...] st Contact Info) Description 06/18/2024 12:40 PM SUPERINTENDENT FISH HATCHERY [facility] [place] [address] [place] [address] Lay Clark, FOUZIA [address] [place], [place] [id number] documented as of this encounter Visit Diagnoses Not on filedocumented in this encounter Care Teams Resistor Tester Relationship Specialty Start Date End Date Lay Clark, MORTAR CARRIER [address] [facility] [address] [place] [address] PCP - General NURSE PRACTITIONER 01/23/24 documented as of this encounter
--- OUTSIDE RECORDS SUMMARY | 2024-06-17 15:18 | XMS_ITS | Encounter Summary ---
Author Organization [facility] Address [facility] [place] [address] Care Team Providers Care Solidworks Drafter Name Role Phone Lay Clark MICROBIOLOGY SUPERVISOR Primary Care Provider [phone] Encounter Details Date Type Department Care Team (Late st Contact Info) Description 03/19/2024 Dynamaxx Mfghart Message Enc [facility] [place] [address] [address] [place], [place] [address] Lay Clark, MICROBIOLOGY SUPERVISOR [address] [place] [address] Test results Social History Tobacco Use Types Packs/Day Years [...] st Contact Info) Description 06/18/2024 12:40 PM LOCKER ROOM MANAGER Office [facility] [place] [address] [place] [address] Lay Clark, MICROBIOLOGY SUPERVISOR [address] [place], [place] [address] documented as of this encounter Visit Diagnoses Not on filedocumented in this encounter Care Teams Solidworks Drafter Relationship Specialty Start Date End Date Lay Clark, MICROBIOLOGY SUPERVISOR [address] [facility] [address] [place] [address] PCP - General NURSE PRACTITIONER 01/23/24 documented as of this encounter
--- OUTSIDE RECORDS SUMMARY | 2024-06-17 15:18 | XMS_ITS | Encounter Summary ---
Author Organization [facility] Address [facility] [place] [address] Care Team Providers Care Floor Layer Tile Name Role Phone Lay Clark SALAD MAKER Primary Care Provider [phone] Encounter Details Date Type Department Care Team (Late st Contact Info) Description 02/20/2024 Nonobat Message Enc [facility] [place] [address] [place], [place] [address] Lay Clark, SALAD MAKER [address] [place] [address] Sleep test? Social History Tobacco Use Types Packs/Day Years [...] st Contact Info) Description 06/18/2024 12:40 PM ADZING AND BORING MACHINE OPERATOR [facility] [place] [address] [place] [address] Lay Clark, SALAD MAKER [address] [facility] [address] [place], [place] [id number] documented as of this encounter Visit Diagnoses Not on filedocumented in this encounter Care Teams Floor Layer Tile Relationship Specialty Start Date End Date Lay Clark, SALAD MAKER [address] [facility] [address] [place] [address] PCP - General NURSE PRACTITIONER 01/23/24 documented as of this encounter
--- OUTSIDE RECORDS SUMMARY | 2024-06-17 15:18 | XMS_ITS | Clinical Summary ---
Author Organization [facility] Address [facility] [place] [address] Care Team Providers Care Joint Creaser Name Role Phone Lay Clark NP Primary Care Provider [phone] Allergies No known active allergies Medications albuterol sulfate HFA 108 (90 Base) MCG/ACT inhalerIndications :Dyspnea, unspecified type Inhale 2 puffs into the lungs every 6 (six) hours as needed for Wheezing or Shortness of breath. 18 g 1 4 Active Etonogestrel-Ethin yl Estradiol (NUVARING) 0.12-0.015 MG/24HR RINGIndications:En counter for initial prescription of vaginal ring hormonal contraceptive Place 1 Ring vaginally every 30 (thirty) days. 1 EVERY 3 WEEKS DIRECTED, REMOVE FOR 1 WEEK 3 each 1 4 Active CPAP DEVICE, DME,Indications:OS A (obstructive sleep apnea) 1 Device by Does not apply route nightly at bedtime. Autopap 4-20 cm h20 Nasal mask 1 Device 4 Active phentermine (ADIPEX-P) 37.5 MG tabletIndications: Class 3 severe obesity without serious comorbidity with body mass index (BMI) greater than or equal to 70 in adult, unspecified obesity type (CMS/HCC HHS/HCC),ANNIKA (obstructive sleep apnea) Take 1/2 tab by mouth once daily 30 tablet 4 Active Active Problems Problem Noted Date Diagnosed Date ANNIKA (obstructive sleep apnea) 03/19/2024 High risk heterosexual behavior 02/18/2024 Family history of cervical cancer 01/23/2024 Family history of breast cancer 01/23/2024 Amenorrhea 01/23/2024 Migraine with aura and witho ut status migrainosus, not intractable 01/23/2024 Class 3 severe obesity witho ut serious comorbidity with body mass index (BMI) greater than or equal to 70 in adult, unspecified obesity type ([facility]) 01/23/2024 Snoring 01/23/2024 Encounters Date Type Department Care Team Description 05/12/2024 2:20 PM BABY REGISTRY SALES CONSULTANT Telemedicine [facility] [address] [place] [address] Lay Clark, POLICE JUDGE COVID-19 05/12/2024 Travel 05/12/2024 MyChart Message [facility] [address] [place] [address] Lay Clark, POLICE JUDGE Covid 04/24/2024 Scan Shyp INFO SRVCS Scanned, [facility] 04/24/2024 MyChart Message [facility] [address] [place] [address] Lay Clark, POLICE JUDGE Sleep machine? 03/19/2024 10:00 AM BABY REGISTRY SALES CONSULTANT Office Visit [facility] [address] [place] [address] Lay Clark, POLICE JUDGE Follow Up 03/19/[address] [facility] [address] [place] [address] Lay Clark, POLICE JUDGE Medication 03/19/2024 MyChart Message Enc [facility] [address] [place] [address] Lay Clark, POLICE JUDGE Contrave wasn t covered. 03/19/2024 MyChart Message Enc [facility] [address] [place] [address] Lay Clark NP Test results 03/19/2024 Travel from Last 3 Months Family History Medical History Relation Comments No Known Problems Father Breast Cancer Maternal Aunt Stroke Maternal Grandmother COPD Mother Cervical cancer Mother Diabetes Mother Heart Disease Mother Hyperlipidemia Mother Hypertension Mother Stroke Paternal Grandmother Relation Status Comments Father Alive Maternal Aunt Alive Maternal Grandmother Mother Alive Paternal Grandmother Social History Tobacco Use Types Packs/Day Years Used Date Smoking Tobacco: Never Smokeless Tobacco: Never Tobacco Cessation:Counseling Given: No Alcohol Use Standard Drinks/Week Comments Not Currently 0 (1 standard drink = 0.6 oz pur e alcohol) PHQ-2 Answer Date Recorded Patient Health Questionnaire-2 Score 0 01/23/2024 Comments No Sex and Gender Information Value Date Recorded Sex Assigned at Not on file Legal Sex Female 8:26 AM CDT Gender Identity Not on file Sexual Orientation Not on file Last Filed Vital Signs Vital Sign Reading Time Taken Comments Blood Pressure 110/82 03/19/2024 10:44 AM BABY REGISTRY SALES CONSULTANT Pulse 95 03/19/2024 10:21 AM BABY REGISTRY SALES CONSULTANT Temperature 36.4 C (97.6 F) 03/19/2024 10:21 AM BABY REGISTRY SALES CONSULTANT Respiratory Rate 19 03/19/2024 10:21 AM BABY REGISTRY SALES CONSULTANT Oxygen Saturation 98% 03/19/2024 10:21 AM BABY REGISTRY SALES CONSULTANT Inhaled Oxygen Concentration - - Weight 192.3 kg (424 lb) 05/12/2024 2:14 PM BABY REGISTRY SALES CONSULTANT Height 165.1 cm (5' 5 ) 05/12/2024 2:14 PM BABY REGISTRY SALES CONSULTANT Body Mass Index 70.56 05/12/2024 2:14 PM BABY REGISTRY SALES CONSULTANT Plan of Treatment Upcoming Encounters Date Type Department Care Team (Late st Contact Info) Description 06/18/2024 12:40 PM BABY REGISTRY SALES CONSULTANT Office Visit [facility] [place] [address] [place] [address] Lay Clark, FOUZIA [address] [facility] [facility] [address] [place] [address] Health Maintenance Due Date Last Done Comments Cervical Cancer Screening Pa p Smear (Age 30 to 64) Every 3 Years 1993 Hepatitis B Vaccines (1 of 3 - 19+ 3-dose series) 02/08/2012 Cervical Cancer Screening Pa p with HPV Testing (Age 30 to 64) Every 5 Years 2023 Cervical Cancer Screening with HPV 2023 COVID-19 Vaccine (3 - 2023-2 5 season) 2023 07/02/2021, 04/28/2021 Influenza Adult (#1) 2024 PHQ-2 (Physician Mechoopda) 04/30/2024 01/23/2024 Annual Physical 01/22/2025 01/23/2024 DTaP, Tdap and Td Vaccines ( 1 - Tdap) 04/30/2028 Postponed from 02/07 (Future Appointment) Hepatitis C Completed 02/18/2024 HPV Vaccines Aged Out No longer eligi ble based on patient's age to complete this topic Meningococcal B Vaccine Aged Out No l onger eligible based on patient's age to complete this topic Meningococcal Vaccine Aged Out No katia elyse eligible based on patient's age to complete this topic Pneumococcal Vaccine: Pediatrics (0 to 5 Years) and At-Risk Patients (6 to 64 Years) Aged Out No longer eligible b ased on patient's age to complete this topic RSV Immunizations Under 20 Months Aged Out No longer eligible b ased on patient's age to complete this topic Procedures Procedure Name Priority Date/Time Associated Diagnosis Comments HEPATITIS C ANTIBODY Routine 02/18/2024 1:31 PM CDT Need for hepatitis C screening test from Last 3 Months or Most Recently Relevant to Health Maintenance Results * HEPATITIS C ANTIBODY (02/18/2024 1:31 PM CDT) HEPATITIS C AB NON-REACTI VE NON-REACT TINA 02/18/2024 10:02 PM CDT [facility] Comment: ANTIBODIES TO HCV NOT DETECTED. DOES NOT EXCLUDE THE POSSIBILITY OF EXPOSURE TO HCV. 02/18/2024 1:31 PM CDT us Lay Clark NP LABORATORY Final Resul t [facility] [address] [place] [id number], [id number] from Last 3 Months or Most Recently Relevant to Health Maintenance Insurance JUNE Care Teams Joint Creaser Relationship Specialty Start Date End Date Lay Clark, POLICE JUDGE [address] [place] [address] PCP - General NURSE PRACTITIONER 01/23/24
--- NOTE | 2024-06-17 16:11 | ECG_ITS ---
Test Date: 2024-06-17 16:41:42 Measurements Intervals Mccarr Rate: 92 P: -2 [place]: 160 QRS: -9 QRSD: 88 T: 4 QT: 351 QTc: 435 Interpretive Statements SINUS RHYTHM POSSIBLE ANTERIOR MYOCARDIAL INFARCTION , PROBABLY OLD BORDERLINE T WAVE ABNORMALITY- INFERIOR LEADS BASELINE ARTIFACT- I, II, III, AVR, AVL, AVF, V1, V4-V6 ABNORMAL ECG No previous ECG available for comparison Electronically Signed On 06-17-2024 17:44:57 BUSINESS PROCESS REPRESENTATIVE by Stu Sorensen D.O.
--- OUTSIDE RECORDS SUMMARY | 2024-06-17 16:18 | XMS_ITS | Encounter Summary ---
Author Organization [facility] Address [facility] [place] [address] Care Team Providers Care Rec Therapist Name Role Phone Lay Clark FISH ICER Primary Care Provider [phone] Encounter Details Date Type Department Care Team (Latest Contact Info) Description 03/19/2024 [employer] Message [facility] [place] [address] [place], [place] [address] Lay Clark, FISH ICER [address] [place], [place] [id number] Contrave wasn t covered. Social History Tobacco [...] st Contact Info) Description 06/18/2024 12:40 PM POST OFFICE MARKUP CLERK [facility] [place] [address] [place] [address] Lay Clark, FOUZIA [address] [place], [place] [address] documented as of this encounter Visit Diagnoses Not on filedocumented in this encounter Care Teams Rec Therapist Relationship Specialty Start Date End Date Lay Clark, FISH ICER [address] [facility] [address] [place] [address] PCP - General NURSE PRACTITIONER 01/23/24 documented as of this encounter
--- OUTSIDE RECORDS SUMMARY | 2024-06-17 16:18 | XMS_ITS | Encounter Summary ---
Author Organization [facility] Address [facility] [place] [address] Care Team Providers Care Motor Vehicle Operator Road Supervisor Name Role Phone Lay Clark MIXER WHIPPED TOPPING Primary Care Provider [phone] Encounter Details Date Type Department Care Team (Late st Contact Info) Description 03/19/2024 Parastructurehart Message [facility] [place] [address] [place], [place] [id number] Lay Clark, MIXER WHIPPED TOPPING [address] [place] [address] Test results Social History Tobacco Use Types [...] st Contact Info) Description 06/18/2024 12:40 PM MANAGER COMMUNITY DEVELOPMENT [facility] [place] [address] [place] [address] Lay Clark, MIXER WHIPPED TOPPING [address] [place], [place] [id number] documented as of this encounter Visit Diagnoses Not on filedocumented in this encounter Care Teams Motor Vehicle Operator Road Supervisor Relationship Specialty Start Date End Date Lay Clark, MIXER WHIPPED TOPPING [address] [place] [address] PCP - General NURSE PRACTITIONER 01/23/24 documented as of this encounter
--- OUTSIDE RECORDS SUMMARY | 2024-06-17 16:18 | XMS_ITS | Encounter Summary ---
Author Organization [facility] Address [facility] [place] [address] Care Team Providers Care Central Office Supervisor Name Role Phone Lay Clark LEAD TELLER Primary Care Provider [phone] Encounter Details Date Type Department Care Team (Late st Contact Info) Description 04/24/2024 [email or web address] Message [facility] [place] [address] [address] [facility] [address] [place], [place] [id number] Lay Clark, LEAD TELLER [address] [place] [address] Sleep machine? Social History Tobacco Use Types [...] st Contact Info) Description 06/18/2024 12:40 PM ELECTRICAL WIRER [facility] [place] [address] [place] [address] Lay Clark, LEAD TELLER [address] [place], [place] [id number] documented as of this encounter Visit Diagnoses Not on filedocumented in this encounter Care Teams Central Office Supervisor Relationship Specialty Start Date End Date Lay Clark, LEAD TELLER [address] [facility] [address] [place] [address] PCP - General NURSE PRACTITIONER 01/23/24 documented as of this encounter
--- OUTSIDE RECORDS SUMMARY | 2024-06-17 16:19 | XMS_ITS | Clinical Summary ---
Author Organization [facility] Address [facility] [place] [address] Care Team Providers Care Truck Repair Supervisor Name Role Phone Lay Clark NP Primary Care Provider [phone]- [phone] Allergies No known active allergies Medications albuterol [...] to 68 in adult, unspecified obesity type ([facility]) 01/23/2024 Snoring 01/23/2024 Encounters Date Type Department Care Team Description 05/12/2024 2:20 PM INSPECTOR CANNED FOOD RECONDITIONING Telemedicine [facility] [address] [place] [address] Lay Clark, LINDERMAN OPERATOR COVID-19 05/12/2024 Travel 05/12/2024 MyChart Message [facility] [address] [place] [address] Lay Clark, LINDERMAN OPERATOR Covid 04/24/2024 Scan Cloud Floor INFO SRVCS Scanned, [facility] 04/24/2024 MyChart Message [facility] [address] [place] [address] Lay Clark, LINDERMAN OPERATOR Sleep machine? 03/19/2024 10:00 AM INSPECTOR CANNED FOOD RECONDITIONING Office Visit [facility] [address] [place] [address] Lay Clark, LINDERMAN OPERATOR Follow Up 03/19/2024 Telephone [facility] [address] [place] [address] Lay Clark, LINDERMAN OPERATOR Medication 03/19/2024 MyChart Message Enc [facility] [address] [place] [address] Lay Clark, LINDERMAN OPERATOR Contrave wasn t covered. 03/19/2024 MyChart Message Enc [facility] [address] [place] [address] Lay Clark NP Test results 03/19/2024 Travel [...] Comments Blood Pressure 110/82 03/19/2024 10:44 AM INSPECTOR CANNED FOOD RECONDITIONING Pulse 95 03/19/2024 10:21 AM INSPECTOR CANNED FOOD RECONDITIONING Temperature 36.4 C (97.6 F) 03/19/2024 10:21 AM INSPECTOR CANNED FOOD RECONDITIONING Respiratory Rate 19 03/19/2024 10:21 AM INSPECTOR CANNED FOOD RECONDITIONING Oxygen Saturation 98% 03/19/2024 10:21 AM INSPECTOR CANNED FOOD RECONDITIONING Inhaled Oxygen Concentration - - Weight 192.3 kg (424 lb) 05/12/2024 2:14 PM INSPECTOR CANNED FOOD RECONDITIONING Height 165.1 cm (5' 5 ) 05/12/2024 2:14 PM INSPECTOR CANNED FOOD RECONDITIONING Body Mass Index 70.56 05/12/2024 2:14 PM INSPECTOR CANNED FOOD RECONDITIONING Plan of Treatment Upcoming Encounters Date Type Department Care Team (Late st Contact Info) Description 06/18/2024 12:40 PM INSPECTOR CANNED FOOD RECONDITIONING Office Visit [facility] [place] [address] [place] [address] Lay Clark, FOUZIA [address] [facility] [address] [place] [address] Health Maintenance Due Date Last Done Comments [...] 04/28/2021 Influenza Adult (#1) 2024 PHQ-2 (Physician [place]) 04/30/2024 01/23/2024 Annual Physical 01/22/2025 01/23/2024 DTaP, [...] VE NON-REACT TINA 02/18/2024 10:02 PM CDT [facility] Comment: ANTIBODIES TO HCV NOT DETECTED. DOES NOT EXCLUDE THE POSSIBILITY OF EXPOSURE TO HCV. 02/18/2024 1:31 PM CDT us Lay Clark NP LABORATORY Final Resul t [facility] [address] [place] [id number], [id number] from Last 3 Months or Most Recently Relevant to Health Maintenance Insurance [employer] Care Teams Truck Repair Supervisor Relationship Specialty Start Date End Date Lay Clark, LINDERMAN OPERATOR [address] [place] [address] PCP - General NURSE PRACTITIONER 01/23/24
--- OUTSIDE RECORDS SUMMARY | 2024-06-17 16:19 | XMS_ITS | Encounter Summary ---
Author Organization [facility] Address [facility] [place] [address] Care Team Providers Care Gas Pumping Station Helper Name Role Phone Lay Clark SLASHER RUNNER Primary Care Provider [phone] Encounter Details Date Type Department Care Team (Late st Contact Info) Description 02/20/2024 SurfEasyt Message Enc [facility] [place] [facility] [place] [address] [place], [place] [address] Lay Clark, SLASHER RUNNER [address] [facility] [address] [place] [address] Sleep test? Social History Tobacco Use Types [...] st Contact Info) Description 06/18/2024 12:40 PM MEN'S DESIGNER [facility] [place] [facility] [place] [address] [place] [address] Lay Clark, SLASHER RUNNER [address] [facility] [address] [place], [place] [id number] documented as of this encounter Visit Diagnoses Not on filedocumented in this encounter Care Teams Gas Pumping Station Helper Relationship Specialty Start Date End Date Lay Clark, SLASHER RUNNER [address] [facility] [address] [place] [address] PCP - General NURSE PRACTITIONER 01/23/24 documented as of this encounter
[2024-06-17 16:52] LABS: Glucose Point of Care 90 mg/dl (65-105)
--- NOTE | 2024-06-17 17:20 | ED.GENADULT ---
HPI - General Adult General Chief complaint: Syncope Stated complaint: heavy vag bleeding, syncope, vomiting Time Seen by Provider: 06/17/24 16:10 History of Present Illness HPI narrative: 29-year-old female presented emergency department for evaluation for a heavy menstrual cycle, syncopal episode and a subsequent head injury. Patient states she has had a heavy menstrual cycle for the last 3 weeks. Patient does have follow-up scheduled with her primary care physician. Patient states she has had some increased lightheaded and dizziness. Patient states she stood up from her chair today felt dizzy and lightheaded fell and did strike her head. Patient denies any other pain or injury. Related Data Home Medications ?Medication ?Instructions ?Recorded ?Confirmed ?Last Taken ?Type No Home Medications 06/17/24 06/17/24 Unknown History Allergies Allergy/AdvReac Type Severity Reaction Status Date / Time No Known Allergies Allergy Verified 06/17/24 16:36 Review of Systems Review of Systems: All systems reviewed & are unremarkable except as noted in HPI and below PMFSH Past Medical History Medical History (Updated 06/17/24 @ 18:58 by Shane Bradley MD) Anxiety Depression History of kidney stones Bipolar 1 disorder Surgical History Surgical History History of surgery on arm [place] teeth extracted Family History Family History Grandparent Breast cancer Other Breast cancer Other Cerebrovascular accident Diabetes mellitus Heart disease Hypertension Social History Social History Smoking status: Never smoker Alcohol intake: never Substance use type: does not use Living arrangements: with family Occupation/Education: occupation 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 EYES: PERRLA/EOMI, conjunctivae clear. NOSE: Normal no drainage EARS:TMS clear with good light reflex. THROAT: Pharynx clear, no exudate. NECK: Supple. No adenopathy, no masses. RESPIRATORY: Airway patent, respirations nonlabored. Clear to auscultation bilaterally, no rales, rhonchi, wheezing. CARDIOVASCULAR: Regular rate and rhythm without murmurs rubs or gallops. ABDOMINAL: Soft, nontender, nondistended, normal bowel sounds MUSCULOSKELETAL: Moves all extremities. Strength/ROM intact, No edema, No calf tenderness. NEURO: Alert. Cranial nerves II through XII intact. Grossly intact SKIN: Warm, dry. Normal Color Course Vital Signs Vital signs: Vital Signs Temperature 98.5 F 06/17/24 15:20 Pulse Rate 108 H 06/17/24 15:20 Respiratory Rate 18 06/17/24 15:20 Blood Pressure 144/89 H 06/17/24 15:20 Pulse Oximetry 100 06/17/24 15:20 Oxygen Delivery Room Air 06/17/24 15:20 Temperature 98.5 F 06/17/24 15:20 Pulse Rate 107 H 06/17/24 19:15 Respiratory Rate 16 06/17/24 19:15 Blood Pressure 128/57 L 06/17/24 19:15 Pulse Oximetry 97 06/17/24 19:15 Oxygen Delivery Room Air 06/17/24 15:20 Medical Decision Making [facility] Narrative Medical decision making narrative: 29-year-old female presents emergency department for evaluation after having a syncopal episode. Patient does report heavy menstrual cycle for the last [address] was negative for acute intracranial abnormality. EKG shows normal sinus rhythm. Patient is afebrile with a mild leukocytosis, hemoglobin of 13.5, INR is 1.0, patient has no acute abnormalities on her CMP UA was bloody but patient is currently having her menstrual cycle. Patient had normal PT PTT. Patient does have follow-up scheduled OB Gyne. Differential Diagnosis Differential Diagnosis: Subcu hematoma, subarachnoid hemorrhage, syncope, dehydration anemia Vital Signs Vital Signs: Vital Signs Temperature 98.5 F 06/17/24 15:20 Pulse Rate 108 H 06/17/24 15:20 Respiratory Rate 18 06/17/24 15:20 Blood Pressure 144/89 H 06/17/24 15:20 Pulse Oximetry 100 06/17/24 15:20 Oxygen Delivery Room Air 06/17/24 15:20 Temperature 98.5 F 06/17/24 15:20 Pulse Rate 107 H 06/17/24 19:15 Respiratory Rate 16 06/17/24 19:15 Blood Pressure 128/57 L 06/17/24 19:15 Pulse Oximetry 97 06/17/24 19:15 Oxygen Delivery Room Air 06/17/24 15:20 Lab Data Lab results reviewed: Yes I reviewed the patient's lab results. 06/17/24 17:19 06/17/24 17:19 Labs: Lab Results 06/17/24 06/17/24 06/17/24 Range/Units 16:39 17:19 17:23 WBC 12.6 H (4.5-10.0) K/mm3 RBC 4.93 (4.2-5.4) M/mm3 Hgb 13.5 (12.0-15.0) g/dL Hct 42.5 (37.0-47.0) % MCV 86.2 (80-100) fl MCH 27.4 (26-34) pg MCHC 31.8 L (32-36) g/dl RDW 15.1 H (11.5-14.5) % Plt Count 290 (150-375) k/mm3 MPV 11.1 H (7.4-10.4) fl Immature Gran % (Auto) 0.3 (0-0.5) % Neut % (Auto) 61.0 (45.5-73.1) % Lymph % (Auto) 31.5 (18.3-44.2) % [place] % (Auto) 6.0 (2.6-8.5) % Eos % (Auto) 1.0 (0-4.4) % Baso % (Auto) 0.2 (0.2-1.2) % Lymph # (Auto) 3.97 H (0.9-3.2) K/mm3 [place] # (Auto) 0.8 H (0.1-0.6) K/mm3 Eos # (Auto) 0.1 (0-0.3) K/mm3 Baso # (Auto) 0.0 (0.0-0.1) K/mm3 Abs Immat Gran (auto) 0.04 H (0.00-0.031) K/mm3 Absolute Neuts (auto) 7.7 H (1.3-6.7) K/mm3 Absolute Nucleated RBC 0.000 (0.0-0.012) K/mm3 Nucleated RBC % 0.0 (0.0-0.2) % PT 13.1 (11.1-14.7) Seconds INR 1.0 APTT 25.9 (22.3-36.8) Seconds Sodium 140 (137-145) mmol/L Potassium 4.2 (3.4-5.0) mmol/L Chloride 104 (98-107) mmol/L Carbon Dioxide 25 (22-30) mmol/L Anion Gap 11 (4-12) mmol/L BUN 9 (7-17) mg/dL Creatinine 0.75 (0.7-1.0) mg/dL Estim Creat Clear Calc 165 ml/min Estimated GFR > 60 (59 - ) Glucose 88 (65-110) mg/dL POC Capillary Glucose 90 (65-105) mg/dl Calcium 8.9 (8.4-10.2) mg/dL Total Bilirubin 0.5 (0.2-1.3) mg/dL AST 36 (14-36) U/L ALT 35 (6-35) U/L Alkaline Phosphatase 113 (38-126) U/L Total Protein 8.0 (6.3-8.2) g/dL Albumin 3.9 (3.5-5.1) g/dL Urine Color Dark mary (Yellow) Urine Appearance Cloudy H (Clear) Urine pH 5.5 (5.0-9.0) Ur Specific [place] 1.023 (1.001-1.035) Urine Protein 2+ H (Negative) mg/dL Urine Glucose (UA) Negative (Negative) mg/dL Urine Ketones Trace H (Negative) mg/dL Ur Blood (Man) 3+ H (Negative) Urine Nitrate Negative (Negative) Urine Bilirubin Negative (Negative) Urine Urobilinogen 1.0 (<2.0) mg/dL Leukocyte Esterase Rfl 1+ H (Negative) PHILLIP/UL Urine RBC >100 H (0-2) /hpf Urine WBC 21-50 H (0-3) /hpf Ur Squamous Epith Cells Moderate (Few) /hpf Urine Bacteria 2+ H /hpf Urine Casts 0-2 POC Urine HCG, Qual (Negative) 06/17/24 Range/Units 17:24 WBC (4.5-10.0) K/mm3 RBC (4.2-5.4) M/mm3 Hgb (12.0-15.0) g/dL Hct (37.0-47.0) % MCV (80-100) fl MCH (26-34) pg MCHC (32-36) g/dl RDW (11.5-14.5) % Plt Count (150-375) k/mm3 MPV (7.4-10.4) fl Immature Gran % (Auto) (0-0.5) % Neut % (Auto) (45.5-73.1) % Lymph % (Auto) (18.3-44.2) % [place] % (Auto) (2.6-8.5) % Eos % (Auto) (0-4.4) % Baso % (Auto) (0.2-1.2) % Lymph # (Auto) (0.9-3.2) K/mm3 [place] # (Auto) (0.1-0.6) K/mm3 Eos # (Auto) (0-0.3) K/mm3 Baso # (Auto) (0.0-0.1) K/mm3 Abs Immat Gran (auto) (0.00-0.031) K/mm3 Absolute Neuts (auto) (1.3-6.7) K/mm3 Absolute Nucleated RBC (0.0-0.012) K/mm3 Nucleated RBC % (0.0-0.2) % PT (11.1-14.7) Seconds INR APTT (22.3-36.8) Seconds Sodium (137-145) mmol/L Potassium (3.4-5.0) mmol/L Chloride (98-107) mmol/L Carbon Dioxide (22-30) mmol/L Anion Gap (4-12) mmol/L BUN (7-17) mg/dL Creatinine (0.7-1.0) mg/dL Estim Creat Clear Calc ml/min Estimated GFR (59 - ) Glucose (65-110) mg/dL POC Capillary Glucose (65-105) mg/dl Calcium (8.4-10.2) mg/dL Total Bilirubin (0.2-1.3) mg/dL AST (14-36) U/L ALT (6-35) U/L Alkaline Phosphatase (38-126) U/L Total Protein (6.3-8.2) g/dL Albumin (3.5-5.1) g/dL Urine Color (Yellow) Urine Appearance (Clear) Urine pH (5.0-9.0) Ur Specific [place] (1.001-1.035) Urine Protein (Negative) mg/dL Urine Glucose (UA) (Negative) mg/dL Urine Ketones (Negative) mg/dL Ur Blood (Man) (Negative) Urine Nitrate (Negative) Urine Bilirubin (Negative) Urine Urobilinogen (<2.0) mg/dL Leukocyte Esterase Rfl (Negative) PHILLIP/UL Urine RBC (0-2) /hpf Urine WBC (0-3) /hpf Ur Squamous Epith Cells (Few) /hpf Urine Bacteria /hpf Urine Casts POC Urine HCG, Qual Negative (Negative) Imaging Data Radiologist's impression: Impressions Head CT 06/17/24 16:40 IMPRESSION: No acute intracranial process. Discharge Plan Discharge Clinical Impression: Vaginal bleeding, Vasovagal syncope, Head injury Patient Disposition: Home, Self-Care Condition: Stable Instructions: Antibiotic Form Additional Instructions: Follow a well-balanced diet, drink plenty fluids. Continue to have close follow-up with your primary care physician and OB Gyne regarding vaginal bleeding. If you have any worsening symptoms then please call or return to the emergency department. Patient Language: Croatian Prescriptions: No Action No Home Medications Follow-up/Referrals: UNKNOWN,DOCTOR [Primary Care Provider] -
[2024-06-17 17:25] LABS: Basophils Percent Auto 0.2 % (0.2-1.2); Eosinophils Absolute Auto 0.1 K/mm3 (0-0.3); Hematocrit 42.5 % (37.0-47.0); Hemoglobin 13.5 g/dL (12.0-15.0); Immature Granulocyte Absolute 0.04 K/mm3 (0.00-0.031); Immature Granulocyte Percent A 0.3 % (0-0.5); Lymphocytes Absolute Auto 3.97 K/mm3 (0.9-3.2); Lymphocytes Percent Auto 31.5 % (18.3-44.2); Mean Corpuscular HGB Conc 31.8 g/dl (32-36); Mean Corpuscular Hemoglobin 27.4 pg (26-34); Mean Corpuscular Volume 86.2 fl (80-100); Mean Platelet Volume 11.1 fl (7.4-10.4); Monocytes Absolute Auto 0.8 K/mm3 (0.1-0.6); Neutrophils Absolute Auto 7.7 K/mm3 (1.3-6.7); Platelet Count Result 290 k/mm3 (150-375); Red Blood Count 4.93 M/mm3 (4.2-5.4); Red Cell Distribution Width 15.1 % (11.5-14.5); White Blood Count 12.6 K/mm3 (4.5-10.0)
[2024-06-17 17:26] LABS: BEDSIDEPREGUCG Negative (Negative)
[2024-06-17 17:34] LABS: Alanine Aminotransferase 35 U/L (6-35); Albumin Level 3.9 g/dL (3.5-5.1); Alkaline Phosphatase 113 U/L (38-126); Anion Gap 11 mmol/L (4-12); Aspartate Amino Transferase 36 U/L (14-36); Bilirubin,Total 0.5 mg/dL (0.2-1.3); Blood Urea Nitrogen 9 mg/dL (7-17); Calcium 8.9 mg/dL (8.4-10.2); Carbon Dioxide 25 mmol/L (22-30); Chloride 104 mmol/L (98-107); Estimated CRCL calculation 165 ml/min; Estimated Glomerular Filt Rate > 60; Glucose 88 mg/dL (65-110); Potassium 4.2 mmol/L (3.4-5.0); Sodium 140 mmol/L (137-145)
[2024-06-17 17:36] LABS: Prothrombin Time 13.1 Seconds (11.1-14.7)
[2024-06-17 17:36] LABS: Bacteria Urine 2+ /hpf; Non Pathogenic Casts 0-2; RBC Urine >100 /hpf (0-2); Squamous Epithelial Cell Urine Moderate /hpf (Few); WBC Urine 21-50 /hpf (0-3)
[2024-06-17 17:37] LABS: Partial Thromboplastin Time 25.9 Seconds (22.3-36.8)
[2024-06-17 17:39] LABS: Add Urine Microscopic? YES; Appearance Urine Cloudy (Clear); Bilirubin Urine Negative (Negative); Blood Urine 3+ (Negative); Glucose Urine UA Negative (Negative); Ketones Urine Trace mg/dL (Negative); Leukocyte Esterase Ur 1+ LEU/UL (Negative); Nitrate Urine Negative (Negative); Protein Urine 2+ mg/dL (Negative); Specific Grav Ur 1.023 (1.001-1.035); pH Urine 5.5 (5.0-9.0)
[2024-06-17 17:40] LABS: Color Urine Dark Amber (Yellow)
[2024-06-17] MEDS: HYDROmorphone HCL INJ (*CRX) 1 MG/ML SYR IV PUSH (18:01)
== END 2024-06-17 19:17 | disposition home or self-care (01) ==
PROVIDERS: Emergency Provider Emergency Medicine
DX: N93.9 Abnormal uterine and vaginal bleeding, unspecified (principal); R55 Syncope and collapse; S09.90XA Unspecified injury of head, initial encounter; F41.9 Anxiety disorder, unspecified; F32.A Depression, unspecified; Z87.442 Personal history of urinary calculi; W19.XXXA Unspecified fall, initial encounter
CPT/HCPCS: 36415; 70450; 80053; 81001; 81025; 82948; 85025; 85610; 85730; 93005; 96374; 99284; J1171

== ENCOUNTER 2024-06-19 20:53 | Emergency (ER) | payer OTHER, SELFPAY ==
--- NOTE | ~2024-06-19 | CT_ITS ---
CT of the Abdomen and Pelvis: Indication: Abdominal pain Technique: 2.5 mm axial scans were obtained through the abdomen and pelvis following intravenous adm inistration of 100 cc of Omnipaque 350. Dose reduction technique was used on this scan by utilizing a utomated exposure control and iterative reconstruction technique. The dose-length product (DLP) was 1 912.47 mGy-cm. COMPARISON: 10/09/2023 Findings: Scans through the lung bases are unremarkable. The liver, spleen, pancreas, gallbladder, adrenals and kidneys are within normal limits. No evidence of aortic aneurysm. No lymphadenopathy. No bowel obstruction or bowel wall thickening. There is no evidence to suggest acute appendicitis. Images through the pelvis were performed. Urinary bladder unremarkable. No pelvic mass seen. No ascit es. Impression: No significant abnormalities seen. Reviewed, dictated and finalized at [facility]. 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
--- NOTE | ~2024-06-19 | XR_ITS ---
EXAMINATION: XR chest 2V DATE: 06/19/2024 21:35 INDICATION: Syncope. Shortness of breath. TECHNIQUE: Frontal and lateral views of the chest were obtained. COMPARISON: CT abdomen and pelvis 10/09/2023 FINDINGS: There is no pneumonia, pleural effusion, or pneumothorax. The heart size is normal. IMPRESSION: 1. No acute cardiopulmonary disease. Reviewed, dictated and finalized at location A. PT WRITER
--- OUTSIDE RECORDS SUMMARY | 2024-06-19 20:55 | XMS_ITS | Encounter Summary ---
Author Organization [facility] Address [facility] [place] [address] Care Team Providers Care Analytics Leader Name Role Phone Lay Clark JOINT FILLER Primary Care Provider [phone]- [phone] Encounter Details Date Type Department Care Team (Late Contact Info) Description 02/20/2024 MyChart Message Enc [facility] [place] [address] [place] [address] Lay Clark, JOINT FILLER [address] [place] [address] Sleep test? Social History Tobacco Use Types Packs/Day Years Used Date Smoking Tobacco: Never Smokeless Tobacco: Never Alcohol Use Standard Drinks/Week Comments Not Currently 0 (1 standard drink = 0.6 oz pur e alcohol) PHQ-2 Answer Date Recorded Patient Health Questionnaire-2 Score 0 01/23/2024 Comments No Sex and Gender Information Value Date Recorded Sex Assigned at Female 06/18/2024 3:[address] INTERPRETER Legal Sex Female 8:26 AM CDT Gender Identity Female 06/18/2024 3:[address] INTERPRETER Sexual Orientation Straight 06/18/2024 3: [address] INTERPRETER documented as of this encounter Plan of Treatment Upcoming Encounters Date Type Department Care Team (Late Contact Info) Description 07/16/2024 3:20 PM CDT [facility] [place] [facility] [place] [address] [place], [place] [id number] Lay Clark NP [address] [place] [address] documented as of this encounter Visit Diagnoses Not on filedocumented in this encounter Care Teams Analytics Leader Relationship Specialty Start Date End Date Lay Clark JOINT FILLER [address] [facility] [address] [place] [address] PCP - General NURSE PRACTITIONER 01/23/24 documented as of this encounter
--- OUTSIDE RECORDS SUMMARY | 2024-06-19 20:55 | XMS_ITS | Data Portability ---
Author Organization [facility] [place] , [facility] Address [address] [place] [address] Assessment No assessment recorded. Plan of Treatment Reminders Order Date Submit Date Provider Last Modified By Organization Details Last Modified Time Details Appointments None recorded. Lab prolactin, serum 2023 [email or web address] 1 [facility], [address] [place], [address], 15:28:15 test, urine 2023 024 kdominick 1 [facility], [address] [place], [address], 4 15:28:16 unlisted lab - pcos evaluation (high index suspicion) (hc) 2023 024 kdominick 1 [facility], [address] [place], [address], 4 15:28:15 HPV E6+E7 mRNA, qualitative PCR, cervix 2023 024 kdominick 1 [employer] [facility], [address] [place], [address], 4 15:28:15 pap, LB 2023 LESLI [facility], [address] [facility], [place], [address], 14:46:27 Referral None recorded. Procedures None recorded. Surgeries None recorded. Imaging US, pelvis, complete 2023 024 [email or web address] [facility], [address] [facility], [place], [address], 5 12:13:19 Medication Orders None recorded. Patient TargetsNo targets recorded. Patient InstructionsNo instructions recorded. Reason for Referral None Reported. Results Created Date Observation Date Name Description Value Unit Range Abnormal Flag Note LastModifiedBy Organization Detail LastModifiedTime 02/22/2002/23/2024 PCOS EVALU ATION (HIGH INDEX SUSPI CION) ([facility] ) DHEA-S 175.8 mcg/d L 25.9 - 460.2 normal Not [place], [address], 02/23/2024 10:03:34 02/22/2002/23/2024 PCOS EVALU ATION (HIGH INDEX SUSPI CION) ([facility] ) FSH 5.4 mIU/m L Refer ence Range s are for femal es aged 18 years - Adult Magdalena l Menst ruati ng Femal e: Folli cular phase : 2.5-1 0.2 mIU/m L Mid-C ycle Peak: 3.4-3 3.4 mIU/m L Lutea l phase : 1.5-9 .1 mIU/m L Pregn ant: <0.3 mIU/m L Post- menop ausal : 23.0- 116.6 mIU/m L Not [place], [address], 02/23/2024 10:03:34 02/22/2002/23/2024 PCOS EVALU ATION (HIGH [...] chidi: 0.7-5 .6 mIU/m L Not Available [address], [address], 02/23/2024 10:03:34 02/22/2002/23/2024 PCOS EVALU ATION (HIGH INDEX SUSPI CION) ([facility] ) TSH 2.37 mIU/L 0.55 - 4.78 normal Refer ence Range Femal e aged 18-Ad ult: 0.55- 4.78 Pregn indigo Refer ence Range s First Trime ster 0.26- 2.66 Secon d Trime ster 0.55- 2.73 Third Trime ster 0.43- 2.91 Not Available [facility] [address] [place] [address], [address], 02/23/2024 10:03:34 02/22/20 24 02/23/2024 PCOS EVALU ATION (HIGH INDEX SUSPI CION) ([facility] ) T4, free 1.03 NG/dL 0.89 - 1.76 normal Not Available [address], [address], 02/23/2024 10:03:34 02/22/2002/23/2024 PROLA CTIN prolactin 7.2 NG/mL Refer ence Range s Femal e aged 18-Ad ult Nonpr egnan t: 2.8-2 9.2 ng/mL Pregn ant: 9.7-2 08.5 ng/mL Post- menop ausal : 1.8-2 0.3 ng/mL Pregn indigo, lacta tion, and the admin istra tion of oral contr acept chidi can incre ase prola ctin nikita ntrat ions. Not Available [facility] [address] [place] [address], [address], 02/23/2024 10:03:35 02/22/2002/25/2024 HPV HIGH RISK HPV [...] l cervi kenrick cytol ogy. Not Available [facility] [address] [place], [address], 02/25/2024 18:22:54 02/22/2002/29/2024 THINP REP TIS PAP clinical information: normal Routi ne exam Not Available [address] [place], [address], 02/29/2024 14:46:27 02/22/2002/29/2024 THINP REP TIS PAP LMP: normal NONE GIVEN Not Available [address] [place], [address], 02/29/2024 14:46:27 02/22/2002/29/2024 THINP REP TIS PAP prev. Pap: normal NONE GIVEN Not Available [address] [place], [address], 02/29/2024 14:46:27 02/22/2002/29/2024 THINP REP TIS PAP prev. BX: normal NONE GIVEN Not Available [place] [address] [place], [address], 02/29/2024 14:46:27 02/22/2002/29/2024 THINP REP TIS PAP source: normal Cervi x Not Available [place] [address] [place], [address], 02/29/2024 14:46:27 02/22/2002/29/2024 THINP REP TIS PAP statement of adequacy: normal Satis facto ry for evalu ation . Endoc ervic al/tr ansfo rmati on zone compo nent prese nt. Age and/o r menst rual statu s not provi ded Not Available [place] [address] [place], [address], 02/29/2024 14:46:27 02/22/2002/29/2024 THINP REP TIS PAP interpretati on/result: normal Cytol ogy Resul ts: Negat christian for intra epith elial lesio n or malig rohan . Not Available [address] [place] [address] [place], [address], 02/29/2024 14:46:27 02/22/2002/29/2024 THINP REP TIS PAP comment: normal This case could not be evalu ated with compu ter tamiko rosalio techn ology . The slide was shannan brady scremary cara accor ding to routi ne proce dures . Not Available [place] [address] [place], [address], 02/29/2024 14:46:27 02/22/2002/29/2024 THINP REP TIS PAP cytotechnolo gist: normal PCM, CT( CP) CT Scree leigh Locat ion: [place] [address] [place] [address] Not Available [place] [address] [place], [address], 02/29/2024 14:46:27 02/22/2002/29/2024 THINP REP TIS PAP [...] clini kenrick infor matrosalia n. Not Available [facility] [address] [address], [place], [address], 02/29/2024 14:46:27 02/22/20 24 02/22/2024 pregn indigo test, urine HCG negati ve Not Available [facility] [address] [facility], [place], [address], 02/22/2024 14:36:33 03/16/20 24 03/11/2024 US pelvi c non OB comp ta+TV [facility] [place] [address] . [facility] [address] [place] [address] EXAMIN ATION: Pelvic Ultras ound REPORT DATE: [...] Darling Cummings DO, 2023 9:04 AM LESLI [facility] [address] [place], [address], 03/19/2024 12:40:56 Result Notes None recorded. Procedures Surgical History Date Name Laterality Status Provider Name and Address Organization Details Recorded Time 02/22/20 24 Date of Last Pap Smear completed DENISE CAMEJO DO [address] [facility], [place], [address], [place] 02/28/2024 15:13:08 operative procedure on upper arm [facility] 02/22/2024 13:49:20 extraction of wisdom tooth completed [facility] 02/22/2024 13:49:30 Imaging Results Imaging Date Name Status LastModified by Organiz ation Details LastModified Time 03/11/2024 pelvic non OB comp ta+TV completed [facility] [address] [facility], [place], [address], 03/19/2024 12:40:56 Procedure Notes None recorded. Medical [...] Address Organization Details Last Updated DateTime 02/22/2024 470213. 87 g 72.7 kg/m2 165.1 cm 110 mm[Hg] 60 mm[Hg] Darling Retanakarit[facility] [place] 13:57:02 Social History Question Answer Notes LastModified by Organizat ion Details LastModified Time Tobacco Smoking Status Never Smoker Darling Finleylee null, [place] 02/22/2024 13:48:38 What Is Your Level Of [...] SNOMED-CT Code Diagnosis ICD10 Code Diagnosis Note [id number] DENISE BASHIR, DO [facility] h [address] [place] [address] 02/22/2024 13:24:52 02/29/2024 14:54:38 Secondary amenorrhea 761337044 N91.1 Pt states periods are typically regular [...] had regular periodsUS to be completed at [facility] thirty minutes spent with patient in consultati on (>50% face-to-fa ce). Patient labs and notes were reviewed. Patient questions were answered. Additional patient care was coordinate d. Screening for malignant neoplasm of cervix 064606058 Z12.4 Health Concerns Section Related Observation LastModified by Organization Detai ls LastModified Time None Recorded Concern Status LastModified by Organization Details LastModified Time None Recorded Advance Directives Directive None Recorded Payers Encounter Date Sequence Insurance Name Policy Number Policy [place] Covered Member ID [place] Member ID Guarantor Name 02/22/2024 1 [facility] (MEDICAID HMO) [id number] Rebecca Wright [id number] Rebecca Wright Notes Date Note Type Note [...] Primary negative as well. DENISE CAMEJO DO [address] [facility], [place], [address], [facility] IV 02/28/2024 15:28:30 OBGyn Episode No OBEpisode recorded.
--- OUTSIDE RECORDS SUMMARY | 2024-06-19 20:55 | XMS_ITS | Encounter Summary ---
Author Organization [facility] Address [facility] [place] [address] Care Team Providers Care Reinsurance Claims Analyst Name Role Phone Brian Clark BOOKKEEPING TEACHER Primary Care Provider [phone] Reason for Referral * Consultation (Routine) - Pending Review Specialty Diagnoses / Procedures Referred By Lacy francisco Referred To Contact OBGYN Diagnoses Family history of cervical cancer Amenorrhea Procedures OFFICE/OUTPATIENT NEW LOW MDM 30-44 MINUTES OFFICE/OUTPT VISIT,NEW,LEVL IV OFFICE/OUTPT VISIT,NEW,LEVL V OFFICE/OUTPT VISIT,EST,LEVL III OFFICE/OUTPT VISIT,EST,LEVL IV OFFICE/OUTPT VISIT,EST,LEVL V Brian Clark NP [address] [facility] [address] [place] [address] Phone: tel: fax: Referral ID Status Reason Start Date Expiration Date Visits Requested Visits Authorized [id number] Pending Review Specialty Services 06/18/2024 07/18/2025 1 1 R MACHINE OPERATOR Encounter Details Date Type Department Care Team (Late st Contact Info) Description 06/18/2024 Orders Only [facility] - [place] [address] [place] [address] Brian Clark NP [address] [place] [address] Social History Tobacco Use Types Packs/Day Years Used Date Smoking Tobacco: Never Smokeless Tobacco: Never Alcohol Use Standard Drinks/Week Comments Not Currently 0 (1 standard drink = 0.6 oz pur e alcohol) PHQ-2 Answer Date Recorded Patient Health Questionnaire-2 Score 0 01/23/2024 Comments No Sex and Gender Information Value Date Recorded Sex Assigned at Female 06/18/2024 3:01 PM GLUER MACHINE OPERATOR Legal Sex Female 8:26 AM CDT Gender Identity Female 06/18/2024 3:01 PM GLUER MACHINE OPERATOR Sexual Orientation Straight 06/18/2024 3: 01 PM GLUER MACHINE OPERATOR documented as of this encounter Progress Notes * Brian Clark NP - 06/18/2024 3:22 PM CSTAddended by: BRIAN CLARK on: 06/18/2024 03:22 PM Modules accepted: Orders R MACHINE OPERATOR documented in this encounter Plan of Treatment Upcoming Encounters Date Type Department Care Team (Late st Contact Info) Description 07/16/2024 3:20 PM CDT Office Visit [facility] [place] [address] [place] [address] Brian Clark NP [address] [place] [address] Scheduled Referrals Name Type Priority Associated Diagnoses Orde r Schedule Ambulatory referral to Obstetrics/Gynecology (OTHER) Referral Routine Family history of cervical cancer Amenorrhea Ordered: 06/18/2024 documented as of this encounter Visit Diagnoses Diagnosis Family history of cervical cancer- Primary Family history of malignant neoplasm of genital organ, other Amenorrhea Absence of menstruation documented in this encounter Care Teams Reinsurance Claims Analyst Relationship Specialty Start Date End Date Brian Clark NP [address] [place] [address] PCP - General NURSE PRACTITIONER 01/23/24 documented as of this encounter
--- OUTSIDE RECORDS SUMMARY | 2024-06-19 20:55 | XMS_ITS | Data Portability ---
Author Organization - [facility], [facility] Address [address] [place] [address] Care Team Providers Care Emergency Registrar Name Role Phone JIN RODRIGES Senior Quality Assurance Engineer [phone] VALENTINO BELTRAN Senior Quality Assurance Engineer Assessment No assessment recorded. Plan of Treatment Reminders Order Date Submit Date Provider Last Modified By Organization Details Last Modified Time Details Appointments None recorded. Lab None recorded. Referral physical therapist referral - 3days/2wks 2018 019 [facility], [address], [place], [address], 9 18:15:11 Procedures None recorded. Surgeries None recorded. Imaging XR, calcaneus, 2 or more view 2018 019 [id number] 4 In-Office Order, Internal Use Only DO Not Attach Compendium DO Not Attach Compendium, Do Not Delete/merge, [id number] 9 18:13:09 XR, ankle, 3 or more view 2018 019 [id number] 4 In-Office Order, Internal Use Only DO Not Attach Compendium DO Not Attach Compendium, Do Not Delete/merge, [id number] 9 18:13:09 Medication Orders Mobic 15 mg tablet 2018 019 INTERFACE [facility], [address], [place], [address], 9 18:07:08 Nexium 20 mg capsule,de layed release 2018 019 INTERFACE [facility], [address], [place], [address], 9 18:07:03 diclofenac 1.5 % topical drops 2018 019 INTERFACE [facility], [address], [place], [address], 9 18:06:59 Patient TargetsNo targets recorded. 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 There was some concern there was a [...] weeks. [email or web address] Not available 05/15/2018 18:05:28 05/29/2018 [id number] work status report* [email or web address] Not available 06/05/2018 [...] Time 9 Fracture Surgery completed Tammie Cabrera [place] [facility] 05/15/2018 17:15:03 Imaging Results None [...] Updated DateTime 05/15/2018 165.1 cm 63.2 kg/m2 326656.1 g Tammie Cabrera [facility] 05/15/2018 17:14:39 Date Recorded Body height Body mass index (BMI) Body weight Provider Name and Address Organization Details Last Updated DateTime 05/29/2018 165.1 cm 63.2 kg/m2 045404.1 g Jacki Simmons MD [address] [place] [address], [place], [address], [facility] 05/29/2018 16:58:31 Social History Question Answer Notes LastModified by Organizat ion Details LastModified Time Tobacco Smoking Status Never Smoker Tammie Cabrera null, [facility] 05/15/2018 17:14:58 What Is Your Level Of Alcohol Consumption? Occasional Information not available 05/15/2018 Auto Related Injury? No Information not available 05/15/2018 Is Blood Transfusion Acceptable In An Emergency? Yes Information not available 05/15/2018 Are You Currently Employed? Yes Information not available 05/15/2018 Currently No Information not available 05/15/2018 Who Is Your Employer? 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 Right Information not available 05/15/2018 Date Of Injury Or Duration Of Symptoms 05/14/18 Information not available 05/15/2018 Have You Seen Anyone Else Regarding This Condition [facility] [place] [facility] Information not available 05/15/2018 Marital Status [...] History Nothing Reported. Medical History Condition Response Heart Problems N Gout N Anxiety/Depression Y Osteoarthritis N Pacemaker N Anemia N Ulcers N Heart Attack (NE) N Diabetes N Colorectal Cancer Screening N Bleeding Disorder N Seizures/Epilepsy N Blood Clot N AIDS/HIV N Cancer N Stroke N Hepatitis N Liver Disease N Rheumatoid Arthritis N Pulmonary Embolism N Hypertension N Osteoporosis N Kidney Disease N Gynecological HistoryNo gynecological history recorded. Obstetrics History GPAL:G 0 P 0 0 0 0 Past Encounters Encounter ID Performer Location Encounter Start Date Encounter Closed Date Diagnosis/Indication Diagnosis SNOMED-CT Code Diagnosis ICD10 Code Diagnosis Note [id number] MD [facility] [address] [address] 05/15/2018 17:02:29 05/15/2018 18:13:09 Sprain of ankle 92894585 S93.401A Foot pain 13833832 79.6 71 [id number] MD [facility] [address] [address] 05/29/2018 16:29:08 05/29/2018 17:28:02 Sprain of ankle 19423270 S93.401D Resolved Health Concerns Section Related Observation [...] She said [facility] [place] [facility]. She states they placed her in a boot. she states that the pain is a dull achy type pain. She states that she has pain with weightbearing or walking. She has got no relief from the pain. She denies any numbness or tingling. Jacki Simmons MD [address], [place], [address], [facility] 05/15/2018 18:07:13 05/29/2018 text/html Rebecca comes in the clinic today for follow-up of her right ankle. She states that she slipped and rolled her ankle 15 days ago at work. She had pain and tenderness to her lateral and medial ankle. She said she did go to [facility] [place] [facility]. She states they placed her [...] she did not go due to the [id number] expense. She reports that her pain did resolve with medication. She has returned to regular duty at work with no complaints and no residual pain/swelling. She denies any numbness or tingling. Jacki Simmons MD [address], [place], [address], [facility] 05/29/2018 17:26:42 OBGyn Episode No OBEpisode recorded.
--- OUTSIDE RECORDS SUMMARY | 2024-06-19 20:55 | XMS_ITS | Encounter Summary ---
Author Organization [facility] Address [facility] [place] [address] Care Team Providers Care Supermarket Manager Name Role Phone Lay Clark LEVER OPERATOR Primary Care Provider [phone] Encounter Details Date Type Department Care Team (Late Contact Info) Description 03/19/2024 MyChart Message Enc [facility] [address] [place] [address] Lay Clark, FOUZIA [address] [place] [address] Test results Social History Tobacco Use Types Packs/Day Years Used Date Smoking Tobacco: Never Smokeless Tobacco: Never Alcohol Use Standard Drinks/Week Comments Not Currently 0 (1 standard drink = 0.6 oz pur e alcohol) PHQ-2 Answer Date Recorded Patient Health Questionnaire-2 Score 0 01/23/2024 Comments No Sex and Gender Information Value Date Recorded Sex Assigned at Female 06/18/2024 3:01 PM MILLING MACHINE TENDER Legal Sex Female 8:26 AM CDT Gender Identity Female 06/18/2024 3:01 PM MILLING MACHINE TENDER Sexual Orientation Straight 06/18/2024 3: 01 PM MILLING MACHINE TENDER documented as of this encounter Plan of Treatment Upcoming Encounters Date Type Department Care Team (Late st Contact Info) Description 07/16/2024 3:20 PM CDT Office Visit [facility] Multispecialty [facility] [address] [place] [address] Lay Clark, FOUZIA [address] [place] [address] documented as of this encounter Visit Diagnoses Not on filedocumented in this encounter Care Teams Supermarket Manager Relationship Specialty Start Date End Date Lay Clark, LEVER OPERATOR [address] [facility] [address] [place] [address] PCP - General NURSE PRACTITIONER 01/23/24 documented as of this encounter
--- OUTSIDE RECORDS SUMMARY | 2024-06-19 20:55 | XMS_ITS | Clinical Summary ---
Author Organization [facility] Address [facility] [place] [address] Care Team Providers Care Systems Planner Name Role Phone Lay Clark ARMATURE WINDER REPAIR Primary Care Provider [phone] Allergies No known active allergies Medications albuterol sulfate HFA 108 (90 Base) MCG/ACT inhalerIndication s:Dyspnea, unspecified type Inhale 2 puffs into the lungs every 6 (six) hours as needed for Wheezing or Shortness of breath. 18 g 1 01/23/20 24 Active CPAP DEVICE, DME,Indications:O SA (obstructive sleep apnea) 1 Device by Does not apply route nightly at bedtime. Autopap 4-20 cm h20 Nasal mask 1 Device 03/19/20 24 Active phentermine (ADIPEX-P) 37.5 MG tabletIndications :Class 3 severe obesity without serious comorbidity with body mass index (BMI) greater than or equal to 70 in adult, unspecified obesity type (CMS/HCC HHS/HCC),ANNIKA (obstructive sleep apnea) Take 1/2 tab by mouth once daily 30 tablet 03/19/20 24 Active ibuprofen (MOTRIN) 600 MG tabletIndications :Abdominal cramping Take 1 tablet (600 mg total) by mouth every 6 (six) hours as needed for Pain. 90 tablet 2 06/18/19 25 Active Etonogestrel-Ethi nyl Estradiol (NUVARING) 0.12-0.015 MG/24HR RINGIndications:E ncounter for initial prescription of vaginal ring hormonal contraceptive Place 1 Ring vaginally every 30 (thirty) days. 1 EVERY 3 WEEKS DIRECTED, REMOVE FOR 1 WEEK 3 each 1 03/19/20 24 025 Discontinued Hospital, Clinic, or Other Facility Administered Medication Ordered Dose Route Frequency Start Date End Date Status ketorolac (TORADOL) injection 60 mgIndications:Menorrhagia with irregular cycle,Abdominal cramping 60 mg IM Once 06/18/2024 06/18/2024 Ended Active Problems Problem Noted Date Diagnosed Date Elevated blood pressure reading 06/18/2024 Menorrhagia with irregular cycle 06/18/2024 ANNIKA (obstructive sleep apnea) 03/19/2024 High risk heterosexual behavior 02/18/2024 Family history of cervical cancer 01/23/2024 Family history of breast cancer 01/23/2024 Amenorrhea 01/23/2024 Migraine with aura and witho ut status migrainosus, not intractable 01/23/2024 Class 3 severe obesity witho ut serious comorbidity with body mass index (BMI) greater than or equal to 70 in adult, unspecified obesity type ([facility]) 01/23/2024 Snoring 01/23/2024 Encounters Date Type Department Care Team Description 06/19/2024 MyChart Message Enc [place] [address] [facility] [address] [place] [address] Lay Clark NP Medication question? 06/18/2024 3:00 PM SOLID WASTE ENGINEER Office Visit [place] [address] [facility] [address] [place] [address] Lay Clark NP ER F/U 06/18/2024 Orders Only [place] [address] [facility] [address] [place] [address] Lay Clark ARMATURE WINDER REPAIR 06/18/2024 Travel 05/12/2024 2:20 PM SOLID WASTE ENGINEER Telemedicine [place] [address] [facility] [address] [place] [address] Lay Clark NP COVID-19 05/12/2024 Travel 05/12/2024 MyChart Message Enc [place] [address] [facility] [address] [place] [address] Lay Clark, ARMATURE WINDER REPAIR Covid 04/24/2024 Scan HEALTH INFO SRVCS Scanned, [facility] 04/24/2024 [facility] [place] [address] [address] [facility] [address] [place] [address] Lay Clark, ARMATURE WINDER REPAIR Sleep machine? 03/19/2024 10:00 AM SOLID WASTE ENGINEER [facility] [place] [address] [address] [facility] [address] [place] [address] Lay Clark, ARMATURE WINDER REPAIR Follow Up 03/19/2024 Telephone [place] [address] [address] [facility] [address] [place] [address] Lay Clark, ARMATURE WINDER REPAIR Medication 03/19/2024 MyChart Message [place] [address] [address] [facility] [address] [place] [address] Lay Clark, ARMATURE WINDER REPAIR Contrave wasn t covered. 03/19/2024 MyChart Message [place] [address] [address] [facility] [address] [place] [address] Lay Clark, ARMATURE WINDER REPAIR Test results 03/19/2024 Travel from Last 3 [...] Sex Assigned at Female 06/18/2024 3:01 PM SOLID WASTE ENGINEER Legal Sex Female 8:26 AM CDT Gender Identity Female 06/18/2024 3:01 PM SOLID WASTE ENGINEER Sexual Orientation Straight 06/18/2024 3: 01 PM SOLID WASTE ENGINEER Last Filed Vital Signs Vital Sign Reading Time Taken Comments Blood Pressure 148/90 06/18/2024 3:36 PM SOLID WASTE ENGINEER Pulse 100 06/18/2024 3:36 PM SOLID WASTE ENGINEER Temperature 36.8 C (98.3 F) 06/18/2024 3:01 PM SOLID WASTE ENGINEER Respiratory Rate 19 06/18/2024 3:01 PM SOLID WASTE ENGINEER Oxygen Saturation 96% 06/18/2024 3:01 PM SOLID WASTE ENGINEER Inhaled Oxygen Concentration - - Weight 193 kg (425 lb 6.4 oz) 06/18/2024 3:01 PM SOLID WASTE ENGINEER Height 165.1 cm (5' 5 ) 06/18/2024 3:01 PM SOLID WASTE ENGINEER Body Mass Index 70.79 06/18/2024 3:01 PM SOLID WASTE ENGINEER Plan of Treatment Upcoming Encounters Date Type Department Care Team (Late st Contact Info) Description 07/16/2024 3:20 PM CDT Office Visit [facility] [place] [address] [place] [address] Lay Clark, ARMATURE WINDER REPAIR [address] [place] [address] Health Maintenance Due Date Last Done Comments [...] 04/28/2021 Influenza Adult (#1) 2024 PHQ-2 (Physician [place]) 04/30/2024 01/23/2024 Annual Physical 01/22/2025 01/23/2024 DTaP, [...] Procedure Name Priority Date/Time Associated Diagnosis Comments IRON SAT PANEL (IRON,IBC,%SAT) Routine 06/18/2024 3:47 PM SOLID WASTE ENGINEER Menorrhagia with irregular cycle TRANSFERRIN Routine 06/18/2024 3:47 PM SOLID WASTE ENGINEER Menorrhagia with irregular cycle FERRITIN Routine 06/18/2024 3:47 PM SOLID WASTE ENGINEER Menorrhagia with irregular cycle CBC W/DIFF AUTOMATED Routine 06/18/2024 3:47 PM SOLID WASTE ENGINEER Menorrhagia with irregular cycle HEPATITIS C ANTIBODY Routine 02/18/2024 1:31 PM CDT Need for hepatitis C screening test from Last 3 Months or Most Recently Relevant to Health Maintenance Results * IRON SAT PANEL (IRON,IBC,%SAT) (06/18/2024 3:47 PM SOLID WASTE ENGINEER) IRON 61 50 - 170 MCG/DL 06/18/2024 7:39 PM SOLID WASTE ENGINEER [facility] IRON BINDING CAPACITY 418 250 - 450 MCG/DL 06/18/2024 7:39 PM SOLID WASTE ENGINEER [facility] IRON SATURATION 15 % 7:39 PM SOLID WASTE ENGINEER [facility] Comment:REFERENCE RANGE NOT ESTABLISHED 06/18/2024 3:47 PM SOLID WASTE ENGINEER Lay N Amber ARMATURE WINDER REPAIR LABORATORY Final Resul t Performing Organization Address City/[facility]/ZIP Co de Phone Number [facility] [address] [place] [address], [place] [phone] * TRANSFERRIN (06/18/2024 3:47 PM SOLID WASTE ENGINEER) TRANSFERRIN 356 200 - 360 mg/dL 06/19/2024 5:47 PM SOLID WASTE ENGINEER [facility] 06/18/2024 3:47 PM SOLID WASTE ENGINEER Lay Clark NP LABORATORY Final Resul t Performing Organization Address City/[facility]/ZIP Co de Phone Number [facility] [address] [place] [address], [place] [phone] * (ABNORMAL) CBC W/DIFF AUTOMATED (06/18/2024 3:47 PM SOLID WASTE ENGINEER) WBC 8.79 4.00 - 10.80 x10'3/uL 06/18/2024 7:42 PM SOLID WASTE ENGINEER [facility] RBC 4.70 4.10 - 5.40 x10'6/uL 06/18/2024 7:42 PM SOLID WASTE ENGINEER [facility] HGB 12.9 12.0 - 16.0 G/DL 06/18/2024 7:42 PM SOLID WASTE ENGINEER [facility] HCT 40.1 36.0 - 47.0 % 06/18/2024 7:42 PM SOLID WASTE ENGINEER [facility] MCV 85.3 78.0 - 100.0 FL 06/18/2024 7:42 PM SOLID WASTE ENGINEER [facility] MCH 27.4 27.0 - 31.0 PG 06/18/2024 7:42 PM SOLID WASTE ENGINEER [facility] MCHC 32.2(L) 33.0 - 36.0 G/DL 06/18/2024 7:42 PM [facility] RDW 14.9(H) 11.5 - 14.5 % 06/18/2024 7:42 PM [facility] PLT 304 150 - 350 x10'3/uL 06/18/2024 7:42 PM [facility] MPV 11.9(H) 7.4 - 10.4 FL 06/18/2024 7:42 PM [facility] DIFFERENTIAL TYPE AUTOMATED DIFFERENTIAL 06/18/2024 7:42 PM [facility] NEUTROPHILS % 63.1 % 06/18/2024 7:42 PM [facility] LYMPHOCYTES % 29.9 % 06/18/2024 7:42 PM [facility] MONOCYTES % 4.2 % 06/18/2024 7:42 PM [facility] EOSINOPHILS % 2.6 % 06/18/2024 7:42 PM [facility] BASOPHILS % 0.2 % 06/18/2024 7:42 PM [facility] IMMATURE GRANS % 0.0 % 06/18/2024 7:42 PM [facility] ABS. NEUTROPHILS 5.54 1.60 - 8.30 x10'3/uL 06/18/2024 7:42 PM [facility] ABS. LYMPHOCYTES 2.63 0.80 - 4.70 x10'3/uL 06/18/2024 7:42 PM [facility] ABS. MONOCYTES 0.37 0.00 - 1.50 x10'3/uL 06/18/2024 7:42 PM [facility] ABS. EOSINOPHILS 0.23 0.00 - 0.40 x10'3/uL 06/18/2024 7:42 PM [facility] ABS. BASOPHILS 0.02 0.00 - 0.20 x10'3/uL 06/18/2024 7:42 PM [facility] ABS. IMMATURE GRANULOCYTES 0.00 0.00 - 0.03 x10'3/uL 06/18/2024 7:42 PM SOLID WASTE ENGINEER [facility] 06/18/2024 3:47 PM SOLID WASTE ENGINEER Lay Clark NP LABORATORY Final Resul t Performing Organization Address [facility] Co de Phone Number [facility] [address] [place] [address], [place] [phone] * FERRITIN (06/18/2024 3:47 PM SOLID WASTE ENGINEER) [facility] FERRITIN 180.0 8 - 252 NG/ML 06/18/2024 7:39 PM SOLID WASTE ENGINEER [facility] 06/18/2024 3:47 PM SOLID WASTE ENGINEER Lay Clark NP LABORATORY Final Resul t Performing Organization Address [facility] de Phone Number [address] [address], [place] [phone] * HEPATITIS C ANTIBODY (02/18/2024 1:31 PM CDT) [facility] HEPATITIS C AB NON-REACTI VE NON-REACT TINA 02/18/2024 10:02 PM CDT [facility] Comment: ANTIBODIES TO HCV NOT DETECTED. DOES NOT EXCLUDE THE POSSIBILITY OF EXPOSURE TO HCV. 02/18/2024 1:31 PM CDT Lay Clark NP LABORATORY Final Resul t Performing Organization Address City/[facility] Co de Phone Number [facility] [address] [place] [address], [place] [phone] from Last 3 Months or Most Recently Relevant to Health Maintenance Insurance [employer] Care Teams Systems Planner Relationship Specialty Start Date End Date Lay Clark, FOUZIA [address] [place] [address] PCP - General NURSE PRACTITIONER 01/23/24
--- OUTSIDE RECORDS SUMMARY | 2024-06-19 20:55 | XMS_ITS | Encounter Summary ---
Author Organization [facility] Address [facility] [place] [address] Care Team Providers Care Gluer And Slicer Hand Name Role Phone Lay Clark EXTRACORPOREAL TECHNICIAN Primary Care Provider [phone] Encounter Details Date Type Department Care Team (Latest Contact Info) Description 06/18/2024 Travel Social History Tobacco Use Types Packs/Day Years Used Date Smoking Tobacco: Never Smokeless Tobacco: Never Alcohol Use Standard Drinks/Week Comments Not Currently 0 (1 standard drink = 0.6 oz pur e alcohol) PHQ-2 Answer Date Recorded Patient Health Questionnaire-2 Score 0 01/23/2024 Comments No Sex and Gender Information Value Date Recorded Sex Assigned at Female 06/18/2024 3:01 PM RESEARCH ASSOCIATE MOLECULAR BIOLOGY Legal Sex Female 8:26 AM CDT Gender Identity Female 06/18/2024 3:01 PM RESEARCH ASSOCIATE MOLECULAR BIOLOGY Sexual Orientation Straight 06/18/2024 3: 01 PM RESEARCH ASSOCIATE MOLECULAR BIOLOGY documented as of this encounter Plan of Treatment Upcoming Encounters Date Type Department Care Team (Late st Contact Info) Description 07/16/2024 3:20 PM CDT Office Visit [facility] [place] [address] [place] [address] Lay Clark NP [address] [place], [place] [id number] documented as of this encounter Visit Diagnoses Not on filedocumented in this encounter Care Teams Gluer And Slicer Hand Relationship Specialty Start Date End Date Lay Clark NP [address] [place] [address] PCP - General NURSE PRACTITIONER 01/23/24 documented as of this encounter
--- OUTSIDE RECORDS SUMMARY | 2024-06-19 20:55 | XMS_ITS | Encounter Summary ---
Author Organization [facility] Address [facility] [place] [address] Care Team Providers Care Sdv Pilot/Navigator/Dds Operator Name Role Phone Lay Clark ECOMMERCE MARKETING SPECIALIST Primary Care Provider [phone] Encounter Details Date Type Department Care Team (Latest Contact Info) Description 03/19/2024 My[facility] [address] [place] [address] Lay Clark NP [address] [place], [place] [id number] Contrave wasn t covered. Social History Tobacco Use Types Packs/Day Years Used Date Smoking Tobacco: Never Smokeless Tobacco: Never Alcohol Use Standard Drinks/Week Comments Not Currently 0 (1 standard drink = 0.6 oz pur e alcohol) PHQ-2 Answer Date Recorded Patient Health Questionnaire-2 Score 0 01/23/2024 Comments No Sex and Gender Information Value Date Recorded Sex Assigned at Female 06/18/2024 3:01 PM MEAL COOK Legal Sex Female 8:26 AM CDT Gender Identity Female 06/18/2024 3:01 PM MEAL COOK Sexual Orientation Straight 06/18/2024 3: 01 PM MEAL COOK documented as of this encounter Plan of Treatment Upcoming Encounters Date Type Department Care Team (Late st Contact Info) Description 07/16/2024 3:20 PM CDT Office Visit [facility] [address] [place] [address] Amber, Lay N, ECOMMERCE MARKETING SPECIALIST [address] [place] [address] documented as of this encounter Visit Diagnoses Not on filedocumented in this encounter Care Teams Sdv Pilot/Navigator/Dds Operator Relationship Specialty Start Date End Date Lay Clark, ECOMMERCE MARKETING SPECIALIST [address] [facility] [address] [place] [address] PCP - General NURSE PRACTITIONER 01/23/24 documented as of this encounter
--- OUTSIDE RECORDS SUMMARY | 2024-06-19 20:55 | XMS_ITS | Encounter Summary ---
Author Organization [facility] Address [facility] [place] [address] Care Team Providers Care Mud Mixer Helper Name Role Phone Lay Clark ROOF BOLTER HELPER Primary Care Provider [phone] Encounter Details Date Type Department Care Team (Latest Contact Info) Description 06/19/2024 MyChart [facility] [place] [address] [place], [place] [id number] Lay Clark, FOUZIA [address] [place], [place] [id number] Medication question? Social History Tobacco Use Types Packs/Day Years Used Date Smoking Tobacco: Never Smokeless Tobacco: Never Alcohol Use Standard Drinks/Week Comments Not Currently 0 (1 standard drink = 0.6 oz pur e alcohol) PHQ-2 Answer Date Recorded Patient Health Questionnaire-2 Score 0 01/23/2024 Comments No Sex and Gender Information Value Date Recorded Sex Assigned at Female 06/18/2024 3:01 PM PRODUCTION REPRODUCTION MANAGER Legal Sex Female 8:26 AM CDT Gender Identity Female 06/18/2024 3:01 PM PRODUCTION REPRODUCTION MANAGER Sexual Orientation Straight 06/18/2024 3: 01 PM PRODUCTION REPRODUCTION MANAGER documented as of this encounter Plan of Treatment Upcoming Encounters Date Type Department Care Team (Late st Contact Info) Description 07/16/2024 3:20 PM CDT [facility] [place] [address] [place], [place] [address] Lay Clark NP [address] [place] [address] documented as of this encounter Visit Diagnoses Not on filedocumented in this encounter Care Teams Mud Mixer Helper Relationship Specialty Start Date End Date Lay Clark, ROOF BOLTER HELPER [address] [facility] [address] [place] [address] PCP - General NURSE PRACTITIONER 01/23/24 documented as of this encounter
--- OUTSIDE RECORDS SUMMARY | 2024-06-19 20:55 | XMS_ITS | Encounter Summary ---
Author Organization [facility] Address [facility] [place] [address] Care Team Providers Care Sketch Maker Name Role Phone Lay Clark CHILD CARE EDUCATION COORDINATOR Primary Care Provider [phone] Encounter Details Date Type Department Care Team (Late Contact Info) Description 04/24/2024 MyChart Message Enc [facility] [address] [place] [address] Lay Clark, CHILD CARE EDUCATION COORDINATOR [address] [place] [address] Sleep machine? Social History Tobacco Use Types Packs/Day Years Used Date Smoking Tobacco: Never Smokeless Tobacco: Never Alcohol Use Standard Drinks/Week Comments Not Currently 0 (1 standard drink = 0.6 oz pur e alcohol) PHQ-2 Answer Date Recorded Patient Health Questionnaire-2 Score 0 01/23/2024 Comments No Sex and Gender Information Value Date Recorded Sex Assigned at Female 06/18/2024 3:01 PM WEB DESIGN INSTRUCTOR Legal Sex Female 8:26 AM CDT Gender Identity Female 06/18/2024 3:01 PM WEB DESIGN INSTRUCTOR Sexual Orientation Straight 06/18/2024 3: 01 PM WEB DESIGN INSTRUCTOR documented as of this encounter Plan of Treatment Upcoming Encounters Date Type Department Care Team (Late Contact Info) Description 07/16/2024 3:20 PM CDT [facility] [address] [place], [place] [phone] Lay Clark, CHILD CARE EDUCATION COORDINATOR [address] [place] [address] documented as of this encounter Visit Diagnoses Not on filedocumented in this encounter Care Teams Sketch Maker Relationship Specialty Start Date End Date Lay Clark CHILD CARE EDUCATION COORDINATOR [address] [facility] [address] [place] [address] PCP - General NURSE PRACTITIONER 01/23/24 documented as of this encounter
--- OUTSIDE RECORDS SUMMARY | 2024-06-19 20:55 | XMS_ITS | Encounter Summary ---
Author Organization [facility] Address [facility] [place] [address] Care Team Providers Care Machine Bunch Maker Name Role Phone Brian Clark CROWN ATTACHER Primary Care Provider [phone] Reason for Visit * Reason Comments ER F/U Encounter Details Date Type Department Care Team (Late st Contact Info) Description 06/18/2024 3:00 PM COBBLER APPRENTICE Office Visit [facility] Multispecialty Care - [place] [address] [place] [address] Brian Clark, CROWN ATTACHER [address] [place] [address] ER F/U Social History Tobacco Use Types Packs/Day Years Used Date Smoking Tobacco: Never Smokeless Tobacco: Never Tobacco Cessation:Counseling Given: No Alcohol Use Standard Drinks/Week Comments Not Currently 0 (1 standard drink = 0.6 oz pur e alcohol) PHQ-2 Answer Date Recorded Patient Health Questionnaire-2 Score 0 01/23/2024 Comments No Sex and Gender Information Value Date Recorded Sex Assigned at Female 06/18/2024 3:01 PM COBBLER APPRENTICE Legal Sex Female 8:26 AM CDT Gender Identity Female 06/18/2024 3:01 PM COBBLER APPRENTICE Sexual Orientation Straight 06/18/2024 3: 01 PM COBBLER APPRENTICE documented as of this encounter Last Filed Vital Signs Vital Sign Reading Time Taken Comments Blood Pressure 148/90 06/18/2024 3:36 PM COBBLER APPRENTICE Pulse 100 06/18/2024 3:36 PM COBBLER APPRENTICE Temperature 36.8 C (98.3 F) 06/18/2024 3:01 PM COBBLER APPRENTICE Respiratory Rate 06/18/2024 3:01 PM COBBLER APPRENTICE Oxygen Saturation 96% 06/18/2024 3:01 PM COBBLER APPRENTICE Inhaled Oxygen Concentration - - Weight 193 kg (425 lb 6.4 oz) 06/18/2024 3:01 PM COBBLER APPRENTICE Height 165.1 cm (5' 5 ) 06/18/2024 3:01 PM COBBLER APPRENTICE Body Mass Index 70.79 06/18/2024 3:01 PM COBBLER APPRENTICE documented in this encounter Patient Instructions * Patient Instructions* Brian Clark NP - 06/18/2024 3:00 PM COBBLER APPRENTICE Labs today Follow up in 1 month Refer to alternative obgyn Consider adding iron supplement Follow up in 4-6 weeks LER APPRENTICE documented in this encounter Progress Notes * Brian Clark NP - 06/18/2024 3:00 PM CSTSummary: ER follow up Images from the original note were not included. Internal Medicine Outpatient Progress Note CC: ER F/U HPI: Rebecca Wright is a 29-year-old female who presents to follow up from the ER visit. She stood fromher desk chair and passed out and hit her head on the chair. She felt dizzy when she stood prior topassing out. She feels dizzy sitting but worse with standing attributes her symptoms to her heavy menstrual bleeding, headache and abdominal cramping. Abdominal cramping severe, heavy menstrual bleeding with clots for 3 weeks while using nuva ring. 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 She had blood work and ultrasound completed. No records received yet. At [facility] head CT negative, WBC elevated at 12, CBC negative for anemia no electrolyte abnormalities. Hgc negative. EKG completed. She was given dilaudid for cramping. Weight gain Off her phentermine was doing well with medication had more energy to exercise Patient has history of below: Patient Active Problem List Diagnosis Family history of cervical cancer Family history of breast cancer Amenorrhea Migraine with aura and without status migrainosus, not intractable Class 3 severe obesity without serious comorbidity with body mass index (BMI) greater than or equalto 70 in adult, unspecified obesity type ([facility]) Snoring High risk heterosexual behavior ANNIKA (obstructive sleep apnea) Elevated blood pressure reading Menorrhagia with irregular cycle Review of Systems Constitutional: Negative. HENT: Negative. Eyes: Negative. Respiratory: Negative. Cardiovascular: Negative. Gastrointestinal: Positive for abdominal pain. Cramping Genitourinary: Positive for menstrual problem, pelvic pain and vaginal bleeding. Negative for difficulty urinating, dyspareunia, dysuria, frequency and hematuria. Neurological: Negative. Psychiatric/Behavioral: Negative. Past Medical History: Past Medical History: Diagnosis Date Anxiety Depression Family History: Family History Problem Relation Name Age of Onset Hyperlipidemia Mother Hypertension Mother Cervical cancer Mother 30 COPD Mother Diabetes Mother Heart Disease Mother No Known Problems Father Breast Cancer Maternal Aunt 36 Stroke Maternal Grandmother Stroke Paternal Grandmother Social History: Social History Tobacco Use Smoking status: Never Smokeless tobacco: Never Vaping Use Vaping status: Never Used Substance Use Topics Alcohol use: Not Currently Drug use: Never Medications: Outpatient Medications Marked as Taking for the 06/18/24 encounter (Office Visit) with Brian Clark NP Medication Sig Dispense Refill albuterol sulfate HFA 108 (90 Base) MCG/ACT inhaler Inhale 2 puffs into the lungs every 6 (six) hours as needed for Wheezing or Shortness of breath. 18 g 1 CPAP DEVICE, DME, 1 Device by Does not apply route nightly at bedtime. Autopap 4-20 cm h20 Nasal mask 1 Device 0 ibuprofen (MOTRIN) 600 MG tablet Take 1 tablet (600 mg total) by mouth every 6 (six) hours as needed for Pain. 90 tablet 2 phentermine (ADIPEX-P) 37.5 MG tablet Take 1/2 tab by mouth once daily 30 tablet 0 Current Facility-Administered Medications for the 06/18/24 encounter (Office Visit) with Brian Clark NP Medication Dose Route Frequency Provider Last Rate Last Admin ketorolac (TORADOL) injection 60 mg 60 mg Intramuscular Once Allergies: Review of patient's allergies indicates: Patient has no known allergies. ? Objective: Filed Vitals: 06/18/24 1501 06/18/24 1536 BP: (!) 149/98 (!) 148/90 Pulse: (!) 111 100 Resp: 19 Temp: 98.3 ??F (36.8 ??C) TempSrc: Core SpO2: 96% Weight: (!) 193 kg (425 lb 6.4 oz) Height: 1.651 m (5' 5 ) Body mass index is 70.79 kg/m??. Physical Exam Constitutional: General: She is in acute distress. Appearance: Normal appearance. Comments: Appears in pain Eyes: Conjunctiva/sclera: Conjunctivae normal. Cardiovascular: Rate and Rhythm: Normal rate and regular rhythm. Heart sounds: Normal heart sounds. No murmur heard. Pulmonary: Effort: Pulmonary effort is normal. No respiratory distress. Breath sounds: Normal breath sounds. No wheezing. Skin: General: Skin is warm and dry. Neurological: Mental Status: She is alert. Psychiatric: Mood and Affect: Mood normal. Judgment: Judgment normal. Assessment and Plan: 1. Menorrhagia with irregular cycle CBC showing elevated WBC in the ER without anemia Add iron studies - IRON SAT PANEL (IRON,IBC,%SAT); Future - TRANSFERRIN; Future - FERRITIN; Future - ketorolac (TORADOL) injection 60 mg - CBC W/DIFF AUTOMATED; Future 2. Abdominal cramping - ketorolac (TORADOL) injection 60 mg 3. Syncope Suspect related to menorrhagia and headaches. Denies palpitations or other concerning symptoms. Head CT negative in the ER. Refer to alt OBGYN, printed recommendations for patient to reach out to herself. Will d/c the Nuvaring. Hold off on resuming phentermine for weight due to concern for hypertension. Repeat BP check in 2-4weeks and discuss consider contrave Tobacco: Counseling given: No I personally spent a total of 40 minutes on the day of the encounter. This includes iine-wj-gcot and aej-joxr-la-face time I provided on the day of the encounter & excludes time spent performing separately reportable services. Side effects and less common but more severe adverse effects of recommended medical therapies were explained to the patient. Patient reminded to use MyChart or telephone follow up prn if symptoms change, worsen, or persist, or if side effect of treatment is experienced. RTC in 2-4 weeks for BP check, dizziness, weight loss medication BRIAN CLARK NP 06/18/2024 [facility], [facility]. LER APPRENTICE documented in this encounter Plan of Treatment Upcoming Encounters Date Type Department Care Team (Late st Contact Info) Description 07/16/2024 3:20 PM CDT Office Visit [facility] Multispecialty Care - [place] [address] [place] [address] Brian Clark NP [address] [place] [address] documented as of this encounter Procedures Procedure Name Priority Date/Time Associated Diagnosis Comments IRON SAT PANEL (IRON,IBC,%SAT) Routine 06/18/2024 3:47 PM COBBLER APPRENTICE Menorrhagia with irregular cycle TRANSFERRIN Routine 06/18/2024 3:47 PM COBBLER APPRENTICE Menorrhagia with irregular cycle CBC W/DIFF AUTOMATED Routine 06/18/2024 3:47 PM COBBLER APPRENTICE Menorrhagia with irregular cycle FERRITIN Routine 06/18/2024 3:47 PM COBBLER APPRENTICE Menorrhagia with irregular cycle documented in this encounter Results * (ABNORMAL) CBC W/DIFF AUTOMATED (06/18/2024 3:47 PM COBBLER APPRENTICE) WBC 8.79 4.00 - 10.80 x10'3/uL 06/18/2024 7:42 PM COBBLER APPRENTICE [facility] RBC 4.70 4.10 - 5.40 x10'6/uL 06/18/2024 7:42 PM COBBLER APPRENTICE [facility] HGB 12.9 12.0 - 16.0 G/DL 06/18/2024 7:42 PM COBBLER APPRENTICE [facility] HCT 40.1 36.0 - 47.0 % 06/18/2024 7:42 PM COBBLER APPRENTICE [facility] MCV 85.3 78.0 - 100.0 FL 06/18/2024 7:42 PM COBBLER APPRENTICE [facility] MCH 27.4 27.0 - 31.0 PG 06/18/2024 7:42 PM [facility] MCHC 32.2(L) 33.0 - 36.0 G/DL 06/18/2024 7:42 PM [facility] RDW 14.9(H) 11.5 - 14.5 % 06/18/2024 7:42 PM [facility] PLT 304 150 - 350 x10'3/uL 06/18/2024 7:42 PM [facility] MPV 11.9(H) 7.4 - 10.4 FL 06/18/2024 7:42 PM [facility] DIFFERENTIAL TYPE AUTOMATED DIFFERENTIAL 06/18/2024 7:42 PM [facility] NEUTROPHILS % 63.1 % 06/18/2024 7:42 PM [facility] LYMPHOCYTES % 29.9 % 06/18/2024 7:42 PM [facility] MONOCYTES % 4.2 % 06/18/2024 7:42 PM [facility] EOSINOPHILS % 2.6 % 06/18/2024 7:42 PM [facility] BASOPHILS % 0.2 % 06/18/2024 7:42 PM [facility] IMMATURE GRANS % 0.0 % 06/18/2024 7:42 PM [facility] ABS. NEUTROPHILS 5.54 1.60 - 8.30 x10'3/uL 06/18/2024 7:42 PM [facility] ABS. LYMPHOCYTES 2.63 0.80 - 4.70 x10'3/uL 06/18/2024 7:42 PM [facility] ABS. MONOCYTES 0.37 0.00 - 1.50 x10'3/uL 06/18/2024 7:42 PM [facility] ABS. EOSINOPHILS 0.23 0.00 - 0.40 x10'3/uL 06/18/2024 7:42 PM COBBLER APPRENTICE [facility] ABS. BASOPHILS 0.02 0.00 - 0.20 x10'3/uL 06/18/2024 7:42 PM COBBLER APPRENTICE [facility] ABS. IMMATURE GRANULOCYTES 0.00 0.00 - 0.03 x10'3/uL 06/18/2024 7:42 PM COBBLER APPRENTICE [facility] 06/18/2024 3:47 PM COBBLER APPRENTICE us Brian Clark NP LABORATORY Final Resul t Performing Organization Address City/[facility]/ZIP Co de Phone Number [facility] [address] [place] [address], [place] [phone] * FERRITIN (06/18/2024 3:47 PM COBBLER APPRENTICE) FERRITIN 180.0 8 - 252 NG/ML 06/18/2024 7:39 PM COBBLER APPRENTICE [facility] 06/18/2024 3:47 PM COBBLER APPRENTICE us Brian Clark NP LABORATORY Final Resul t Performing Organization Address [facility]/ZIP Co de Phone Number [place] [id number] [place] [address], [place] [phone] * TRANSFERRIN (06/18/2024 3:47 PM COBBLER APPRENTICE) TRANSFERRIN 356 200 - 360 mg/dL 06/19/2024 5:47 PM COBBLER APPRENTICE [facility] 06/18/2024 3:47 PM COBBLER APPRENTICE us Brian Clark NP LABORATORY Final Resul t Performing Organization Address City/[facility]/ZIP Co de Phone Number [facility] [address] [place] [address], [place] [phone] * IRON SAT PANEL (IRON,IBC,%SAT) (06/18/2024 3:47 PM COBBLER APPRENTICE) IRON 61 50 - 170 MCG/DL 06/18/2024 7:39 PM COBBLER APPRENTICE [facility] IRON BINDING CAPACITY 418 250 - 450 MCG/DL 06/18/2024 7:39 PM COBBLER APPRENTICE [facility] IRON SATURATION 15 % 7:39 PM COBBLER APPRENTICE [facility] Comment:REFERENCE RANGE NOT ESTABLISHED 06/18/2024 3:47 PM COBBLER APPRENTICE Brian Clark NP LABORATORY Final Resul t [facility] [address] [place] [address], documented in this encounter Visit Diagnoses Diagnosis Menorrhagia with irregular cycle- Primary Excessive or frequent menstruation Abdominal cramping Abdominal pain, unspecified site Syncope, unspecified syncope type Elevated blood pressure reading Elevated blood pressure reading without diagnosis of hypertension documented in this encounter Administered Medications Inactive Administered Medications - up to 3 most recent administrations Medication Order MAR Action Action Date Dose Rate Site ketorolac (TORADOL) injection 60 mg 60 mg, Intramuscular, Once, 1 dose, On Sun06/18/24 at 1545Indications:Menorrha bhakti with irregular cycle,Abdominal cramping Given 06/18/2024 4:13 PM COBBLER APPRENTICE 60 mg Right Dorsal Gluteal documented in this encounter Care Teams Machine Bunch Maker Relationship Specialty Start Date End Date Brian Clark, CROWN ATTACHER [address] [place] [address] PCP - General NURSE PRACTITIONER 01/23/24 documented as of this encounter
[2024-06-19 21:16] VITALS: BP 162/96; PULSE 104; RESP 16; TEMP 36.5; O2SAT 100
--- NOTE | 2024-06-19 21:20 | ECG_ITS ---
Test Date: 2024-06-19 21:46:43 Measurements Intervals [place] Rate: 86 P: 16 OR: 169 QRS: -6 QRSD: 92 T: 30 QT: 370 QTc: 445 Interpretive Statements SINUS RHYTHM DELAYED PRECORDIAL R/S TRANSITION BORDERLINE ECG Compared to ECG 06/17/2024 16:41:42 No significant changes Electronically Signed On 06-20-2024 06:27:42 ENTRY DRIVER OPERATOR by Stu Sorensen D.O.
[2024-06-19 22:26] VITALS: O2SAT 99
[2024-06-19 22:31] LABS: Basophils Percent Auto 0.2 % (0.2-1.2); Eosinophils Absolute Auto 0.2 K/mm3 (0-0.3); Eosinophils Percent Auto 1.8 % (0-4.4); Hematocrit 37.8 % (37.0-47.0); Immature Granulocyte Absolute 0.02 K/mm3 (0.00-0.031); Immature Granulocyte Percent A 0.2 % (0-0.5); Lymphocytes Absolute Auto 3.66 K/mm3 (0.9-3.2); Lymphocytes Percent Auto 38.6 % (18.3-44.2); Mean Corpuscular HGB Conc 31.7 g/dl (32-36); Mean Corpuscular Hemoglobin 27.3 pg (26-34); Mean Corpuscular Volume 85.9 fl (80-100); Monocytes Absolute Auto 0.6 K/mm3 (0.1-0.6); Monocytes Percent Auto 6.8 % (2.6-8.5); Neutrophils Percent Auto 52.4 % (45.5-73.1); Platelet Count Result 271 k/mm3 (150-375); Red Cell Distribution Width 15.1 % (11.5-14.5); White Blood Count 9.5 K/mm3 (4.5-10.0)
[2024-06-19 22:33] VITALS: PULSE 85; RESP 21; O2SAT 99
--- OUTSIDE RECORDS SUMMARY | 2024-06-19 22:36 | XMS_ITS | Encounter Summary ---
Author Organization [facility] Address [facility] [place] [address] Care Team Providers Care Brazing Machine Operator Name Role Phone Brian Clark SENIOR SOFTWARE ENGINEERING MANAGER Primary Care Provider [phone] Reason for Referral * Consultation (Routine) - Pending Review Specialty Diagnoses / Procedures Referred By Lacy francisco Referred To Contact OBGYN Diagnoses Family history of cervical cancer Amenorrhea Procedures OFFICE/OUTPATIENT NEW LOW MDM 30-44 MINUTES OFFICE/OUTPT VISIT,NEW,LEVL IV OFFICE/OUTPT VISIT,NEW,LEVL V OFFICE/OUTPT VISIT,EST,LEVL III OFFICE/OUTPT VISIT,EST,LEVL IV OFFICE/OUTPT VISIT,EST,LEVL V Brian Clark NP [address] [facility] [address] [place] [address] Phone: tel: fax: Referral ID Status Reason Start Date Expiration Date Visits Requested Visits Authorized [id number] Pending Review Specialty Services 06/18/2024 07/18/2025 1 1 EL TRAILER MECHANIC Encounter Details Date Type Department Care Team (Late st Contact Info) Description 06/18/2024 Orders Only [facility] Multispecialty Care - [place] [address] [place] [address] rBian Clark NP [address] [place] [address] Social History Tobacco Use Types Packs/Day Years Used Date Smoking Tobacco: Never Smokeless Tobacco: Never Alcohol Use Standard Drinks/Week Comments Not Currently 0 (1 standard drink = 0.6 oz pur e alcohol) PHQ-2 Answer Date Recorded Patient Health Questionnaire-2 Score 0 01/23/2024 Comments No Sex and Gender Information Value Date Recorded Sex Assigned at Female 06/18/2024 3:01 PM DIESEL TRAILER MECHANIC Legal Sex Female 8:26 AM CDT Gender Identity Female 06/18/2024 3:01 PM DIESEL TRAILER MECHANIC Sexual Orientation Straight 06/18/2024 3: 01 PM DIESEL TRAILER MECHANIC documented as of this encounter Progress Notes * Brian Clark NP - 06/18/2024 3:22 PM CSTAddended by: BRIAN CLARK on: 06/18/2024 03:22 PM Modules accepted: Orders EL TRAILER MECHANIC documented in this encounter Plan of Treatment Upcoming Encounters Date Type Department Care Team (Late st Contact Info) Description 07/16/2024 3:20 PM CDT Office Visit [facility] Multispecialty Care - [place] [address] [place] [address] Brian Clark NP [address] [place] [address] Scheduled Referrals Name Type Priority Associated Diagnoses Orde r Schedule Ambulatory referral to Obstetrics/Gynecology (OTHER) Referral Routine Family history of cervical cancer Amenorrhea Ordered: 06/18/2024 documented as of this encounter Visit Diagnoses Diagnosis Family history of cervical cancer- Primary Family history of malignant neoplasm of genital organ, other Amenorrhea Absence of menstruation documented in this encounter Care Teams Brazing Machine Operator Relationship Specialty Start Date End Date Brian Clark NP [address] [place] [address] PCP - General NURSE PRACTITIONER 01/23/24 documented as of this encounter
--- OUTSIDE RECORDS SUMMARY | 2024-06-19 22:36 | XMS_ITS | Encounter Summary ---
Author Organization [facility] Address [facility] [place] [address] Care Team Providers Care Occupational Therapy Technician Name Role Phone Lay Clark DRAPERY CUTTER MACHINE Primary Care Provider [phone] Encounter Details Date Type Department Care Team (Latest Contact Info) Description 03/19/2024 [facility] [address] [place] [address] Lay Clark NP [address] [place], [place] [id number] Contrave wasn t covered. Social History Tobacco Use Types Packs/Day Years Used Date Smoking Tobacco: Never Smokeless Tobacco: Never Alcohol Use Standard Drinks/Week Comments Not Currently 0 (1 standard drink = 0.6 oz pur e alcohol) PHQ-2 Answer Date Recorded Patient Health Questionnaire-2 Score 0 01/23/2024 Comments No Sex and Gender Information Value Date Recorded Sex Assigned at Female 06/18/2024 3:01 PM BUTCHER HELPER Legal Sex Female 8:26 AM CDT Gender Identity Female 06/18/2024 3:01 PM BUTCHER HELPER Sexual Orientation Straight 06/18/2024 3: 01 PM BUTCHER HELPER documented as of this encounter Plan of Treatment Upcoming Encounters Date Type Department Care Team (Late st Contact Info) Description 07/16/2024 3:20 PM CDT Office Visit [facility] Multispecialty [facility] [address] [place] [address] Amber, Lay N, DRAPERY CUTTER MACHINE [address] [place] [address] documented as of this encounter Visit Diagnoses Not on filedocumented in this encounter Care Teams Occupational Therapy Technician Relationship Specialty Start Date End Date Lay Clark, DRAPERY CUTTER MACHINE [address] [facility] [address] [place] [address] PCP - General NURSE PRACTITIONER 01/23/24 documented as of this encounter
--- OUTSIDE RECORDS SUMMARY | 2024-06-19 22:36 | XMS_ITS | Encounter Summary ---
Author Organization [facility] Address [facility] [place] [address] Care Team Providers Care Inventory And Pricing Associate Name Role Phone Lay Clark GYN PHYSICIAN Primary Care Provider [phone] Encounter Details Date Type Department Care Team (Late Contact Info) Description 03/19/2024 MyChart Message Enc [facility] [address] [place] [address] Lay Clark, FOUZIA [address] [place] [address] Test results Social History Tobacco Use Types Packs/Day Years Used Date Smoking Tobacco: Never Smokeless Tobacco: Never Alcohol Use Standard Drinks/Week Comments Not Currently 0 (1 standard drink = 0.6 oz pur e alcohol) PHQ-2 Answer Date Recorded Patient Health Questionnaire-2 Score 0 01/23/2024 Comments No Sex and Gender Information Value Date Recorded Sex Assigned at Female 06/18/2024 3:01 PM DROP CLIPPER Legal Sex Female 8:26 AM CDT Gender Identity Female 06/18/2024 3:01 PM DROP CLIPPER Sexual Orientation Straight 06/18/2024 3: 01 PM DROP CLIPPER documented as of this encounter Plan of Treatment Upcoming Encounters Date Type Department Care Team (Late st Contact Info) Description 07/16/2024 3:20 PM CDT Office Visit [facility] Multispecialty [facility] [address] [place] [address] Lay Clark, FOUZIA [address] [place] [address] documented as of this encounter Visit Diagnoses Not on filedocumented in this encounter Care Teams Inventory And Pricing Associate Relationship Specialty Start Date End Date Lay Clark, GYN PHYSICIAN [address] [facility] [address] [place] [address] PCP - General NURSE PRACTITIONER 01/23/24 documented as of this encounter
--- OUTSIDE RECORDS SUMMARY | 2024-06-19 22:36 | XMS_ITS | Clinical Summary ---
Author Organization [facility] Address [facility] [place] [address] Care Team Providers Care Sales Correspondence Clerk Name Role Phone Lay Clark COMPONENT TECHNICIAN Primary Care Provider [phone]- [phone] Allergies No known active allergies Medications albuterol [...] to 70 in adult, unspecified obesity type ([facility]) 01/23/2024 Snoring 01/23/2024 Encounters Date Type Department Care Team Description 06/19/2024 MyChart Message Enc [place] [address] [facility] [address] [place] [address] Lay Clark NP Medication question? 06/18/2024 3:00 PM COMMERCIAL CREDIT ANALYST Office Visit [place] [address] [facility] [address] [place] [address] Lay Clark NP ER F/U 06/18/2024 Orders Only [place] [address] [facility] [address] [place] [address] Lay Clark COMPONENT TECHNICIAN 06/18/2024 Travel 05/12/2024 2:20 PM COMMERCIAL CREDIT ANALYST Telemedicine [place] [address] [facility] [address] [place] [address] Lay Clark NP COVID-19 05/12/2024 Travel 05/12/2024 MyChart Message Enc [place] [address] [facility] [address] [place] [address] Lay Clark, COMPONENT TECHNICIAN Covid 04/24/2024 Scan HEALTH INFO SRVCS Scanned, [facility] 04/24/2024 [facility] [place] [address] [address] [facility] [address] [place] [address] Lay Clark, COMPONENT TECHNICIAN Sleep machine? 03/19/2024 10:00 AM COMMERCIAL CREDIT ANALYST Office Visit [facility] [place] [address] [address] [facility] [address] [place] [address] Lay Clark, COMPONENT TECHNICIAN Follow Up 03/19/2024 Telephone [place] [address] [address] [facility] [address] [place] [address] Lay Clark, COMPONENT TECHNICIAN Medication 03/19/2024 MyChart Message [place] [address] [address] [facility] [address] [place] [address] Lay Clark, COMPONENT TECHNICIAN Contrave wasn t covered. 03/19/2024 MyChart Message [place] [address] [address] [facility] [address] [place] [address] Lay Clark, COMPONENT TECHNICIAN Test results 03/19/2024 Travel from Last 3 [...] Sex Assigned at Female 06/18/2024 3:01 PM COMMERCIAL CREDIT ANALYST Legal Sex Female 8:26 AM CDT Gender Identity Female 06/18/2024 3:01 PM COMMERCIAL CREDIT ANALYST Sexual Orientation Straight 06/18/2024 3: 01 PM COMMERCIAL CREDIT ANALYST Last Filed Vital Signs Vital Sign Reading Time Taken Comments Blood Pressure 148/90 06/18/2024 3:36 PM COMMERCIAL CREDIT ANALYST Pulse 100 06/18/2024 3:36 PM COMMERCIAL CREDIT ANALYST Temperature 36.8 C (98.3 F) 06/18/2024 3:01 PM COMMERCIAL CREDIT ANALYST Respiratory Rate 19 06/18/2024 3:01 PM COMMERCIAL CREDIT ANALYST Oxygen Saturation 96% 06/18/2024 3:01 PM COMMERCIAL CREDIT ANALYST Inhaled Oxygen Concentration - - Weight 193 kg (425 lb 6.4 oz) 06/18/2024 3:01 PM COMMERCIAL CREDIT ANALYST Height 165.1 cm (5' 5 ) 06/18/2024 3:01 PM COMMERCIAL CREDIT ANALYST Body Mass Index 70.79 06/18/2024 3:01 PM COMMERCIAL CREDIT ANALYST Plan of Treatment Upcoming Encounters Date Type Department Care Team (Late st Contact Info) Description 07/16/2024 3:20 PM CDT Office Visit [facility] [place] [employer] [address] [place] [address] Lay Clark, COMPONENT TECHNICIAN [address] [place] [address] Health Maintenance Due Date Last Done Comments [...] 04/28/2021 Influenza Adult (#1) 2024 PHQ-2 (Physician [place]) 04/30/2024 01/23/2024 Annual Physical 01/22/2025 01/23/2024 DTaP, [...] SAT PANEL (IRON,IBC,%SAT) Routine 06/18/2024 3:47 PM COMMERCIAL CREDIT ANALYST Menorrhagia with irregular cycle TRANSFERRIN Routine 06/18/2024 3:47 PM COMMERCIAL CREDIT ANALYST Menorrhagia with irregular cycle FERRITIN Routine 06/18/2024 3:47 PM COMMERCIAL CREDIT ANALYST Menorrhagia with irregular cycle CBC W/DIFF AUTOMATED Routine 06/18/2024 3:47 PM COMMERCIAL CREDIT ANALYST Menorrhagia with irregular cycle HEPATITIS C ANTIBODY Routine 02/18/2024 1:31 PM CDT Need for hepatitis C screening test from Last 3 Months or Most Recently Relevant to Health Maintenance Results * IRON SAT PANEL (IRON,IBC,%SAT) (06/18/2024 3:47 PM COMMERCIAL CREDIT ANALYST) IRON 61 50 - 170 MCG/DL 06/18/2024 7:39 PM COMMERCIAL CREDIT ANALYST [facility] IRON BINDING CAPACITY 418 250 - 450 MCG/DL 06/18/2024 7:39 PM COMMERCIAL CREDIT ANALYST [facility] IRON SATURATION 15 % 7:39 PM COMMERCIAL CREDIT ANALYST [facility] Comment:REFERENCE RANGE NOT ESTABLISHED 06/18/2024 3:47 PM COMMERCIAL CREDIT ANALYST Lay N Amber COMPONENT TECHNICIAN LABORATORY Final Resul t Performing Organization Address City/[facility]/ZIP Co de Phone Number [facility] [address] [place] [address], [place] [phone] * TRANSFERRIN (06/18/2024 3:47 PM COMMERCIAL CREDIT ANALYST) TRANSFERRIN 356 200 - 360 mg/dL 06/19/2024 5:47 PM COMMERCIAL CREDIT ANALYST [facility] 06/18/2024 3:47 PM COMMERCIAL CREDIT ANALYST Lay Clark NP LABORATORY Final Resul t Performing Organization Address City/[facility]/ZIP Co de Phone Number [facility] [address] [place] [address], [place] [phone] * (ABNORMAL) CBC W/DIFF AUTOMATED (06/18/2024 3:47 PM COMMERCIAL CREDIT ANALYST) WBC 8.79 4.00 - 10.80 x10'3/uL 06/18/2024 7:42 PM COMMERCIAL CREDIT ANALYST [facility] RBC 4.70 4.10 - 5.40 x10'6/uL 06/18/2024 7:42 PM COMMERCIAL CREDIT ANALYST [facility] HGB 12.9 12.0 - 16.0 G/DL 06/18/2024 7:42 PM COMMERCIAL CREDIT ANALYST [facility] HCT 40.1 36.0 - 47.0 % 06/18/2024 7:42 PM COMMERCIAL CREDIT ANALYST [facility] MCV 85.3 78.0 - 100.0 FL 06/18/2024 7:42 PM COMMERCIAL CREDIT ANALYST [facility] MCH 27.4 27.0 - 31.0 PG 06/18/2024 7:42 PM COMMERCIAL CREDIT ANALYST [facility] MCHC 32.2(L) 33.0 - 36.0 G/DL 06/18/2024 7:42 PM [facility] RDW 14.9(H) 11.5 - 14.5 % 06/18/2024 7:42 PM [facility] PLT 304 150 - 350 x10'3/uL 06/18/2024 7:42 PM [facility] MPV 11.9(H) 7.4 - 10.4 FL 06/18/2024 7:42 PM [facility] DIFFERENTIAL TYPE AUTOMATED DIFFERENTIAL 06/18/2024 7:42 PM [facility] NEUTROPHILS % 63.1 % 06/18/2024 7:42 PM [facility] LYMPHOCYTES % 29.9 % 06/18/2024 7:42 PM [facility] MONOCYTES % 4.2 % 06/18/2024 7:42 PM [facility] EOSINOPHILS % 2.6 % 06/18/2024 7:42 PM [facility] BASOPHILS % 0.2 % 06/18/2024 7:42 PM [facility] IMMATURE GRANS % 0.0 % 06/18/2024 7:42 PM [facility] ABS. NEUTROPHILS 5.54 1.60 - 8.30 x10'3/uL 06/18/2024 7:42 PM [facility] ABS. LYMPHOCYTES 2.63 0.80 - 4.70 x10'3/uL 06/18/2024 7:42 PM [facility] ABS. MONOCYTES 0.37 0.00 - 1.50 x10'3/uL 06/18/2024 7:42 PM [facility] ABS. EOSINOPHILS 0.23 0.00 - 0.40 x10'3/uL 06/18/2024 7:42 PM [facility] ABS. BASOPHILS 0.02 0.00 - 0.20 x10'3/uL 06/18/2024 7:42 PM [facility] ABS. IMMATURE GRANULOCYTES 0.00 0.00 - 0.03 x10'3/uL 06/18/2024 7:42 PM COMMERCIAL CREDIT ANALYST [facility] 06/18/2024 3:47 PM COMMERCIAL CREDIT ANALYST Lay Clark NP LABORATORY Final Resul t Performing Organization Address [facility] Co de Phone Number [facility] [address] [place] [address], [place] [phone] * FERRITIN (06/18/2024 3:47 PM COMMERCIAL CREDIT ANALYST) [facility] FERRITIN 180.0 8 - 252 NG/ML 06/18/2024 7:39 PM COMMERCIAL CREDIT ANALYST [facility] 06/18/2024 3:47 PM COMMERCIAL CREDIT ANALYST Lay Clark NP LABORATORY Final Resul t Performing Organization Address [facility] de Phone Number [address] [address], [place] [phone] * HEPATITIS C ANTIBODY (02/18/2024 1:31 PM CDT) [facility] HEPATITIS C AB NON-REACTI VE NON-REACT TINA 02/18/2024 10:02 PM CDT [facility] Comment: ANTIBODIES TO HCV NOT DETECTED. DOES NOT EXCLUDE THE POSSIBILITY OF EXPOSURE TO HCV. 02/18/2024 1:31 PM CDT Lay Clark NP LABORATORY Final Resul t Performing Organization Address City/[facility] Co de Phone Number [facility] [address] [place] [address], [place] [phone] from Last 3 Months or Most Recently Relevant to Health Maintenance Insurance [employer] Care Teams Sales Correspondence Clerk Relationship Specialty Start Date End Date Lay Clark, FOUZIA [address] [place] [address] PCP - General NURSE PRACTITIONER 01/23/24
--- OUTSIDE RECORDS SUMMARY | 2024-06-19 22:36 | XMS_ITS | Encounter Summary ---
Author Organization [facility] Address [facility] [place] [address] Care Team Providers Care Heat And Frost Insulator Name Role Phone Lay Clark MANAGER ACTION Primary Care Provider [phone] Encounter Details Date Type Department Care Team (Late Contact Info) Description 02/20/2024 MyChart Message Enc [facility] [address] [place] [address] Lay Clark, MANAGER ACTION [address] [place] [address] Sleep test? Social History Tobacco Use Types Packs/Day Years Used Date Smoking Tobacco: Never Smokeless Tobacco: Never Alcohol Use Standard Drinks/Week Comments Not Currently 0 (1 standard drink = 0.6 oz pur e alcohol) PHQ-2 Answer Date Recorded Patient Health Questionnaire-2 Score 0 01/23/2024 Comments No Sex and Gender Information Value Date Recorded Sex Assigned at Female 06/18/2024 3:01 PM CASHIER TUBE ROOM Legal Sex Female 8:26 AM CDT Gender Identity Female 06/18/2024 3:01 PM CASHIER TUBE ROOM Sexual Orientation Straight 06/18/2024 3: 01 PM CASHIER TUBE ROOM documented as of this encounter Plan of Treatment Upcoming Encounters Date Type Department Care Team (Late Contact Info) Description 07/16/2024 3:20 PM CDT [facility] [address] [place], [place] [id number] Lay Clark NP [address] [place] [address] documented as of this encounter Visit Diagnoses Not on filedocumented in this encounter Care Teams Heat And Frost Insulator Relationship Specialty Start Date End Date Lay Clark MANAGER ACTION [address] [facility] [address] [place] [address] PCP - General NURSE PRACTITIONER 01/23/24 documented as of this encounter
--- OUTSIDE RECORDS SUMMARY | 2024-06-19 22:36 | XMS_ITS | Encounter Summary ---
Author Organization [facility] Address [facility] [place] [address] Care Team Providers Care Business English Instructor Name Role Phone Lay Clark LABORATORY CLERK Primary Care Provider [phone]- [phone] Encounter Details Date Type Department Care Team (Late Contact Info) Description 04/24/2024 MyChart Message Enc [facility] [address] [place] [address] Lay Clark, LABORATORY CLERK [address] [place] [address] Sleep machine? Social History Tobacco Use Types Packs/Day Years Used Date Smoking Tobacco: Never Smokeless Tobacco: Never Alcohol Use Standard Drinks/Week Comments Not Currently 0 (1 standard drink = 0.6 oz pur e alcohol) PHQ-2 Answer Date Recorded Patient Health Questionnaire-2 Score 0 01/23/2024 Comments No Sex and Gender Information Value Date Recorded Sex Assigned at Female 06/18/2024 3:01 PM GUIDE FOREIGN TOUR Legal Sex Female 8:26 AM CDT Gender Identity Female 06/18/2024 3:01 PM GUIDE FOREIGN TOUR Sexual Orientation Straight 06/18/2024 3: 01 PM GUIDE FOREIGN TOUR documented as of this encounter Plan of Treatment Upcoming Encounters Date Type Department Care Team (Late Contact Info) Description 07/16/2024 3:20 PM CDT [facility] [place] [address] [place], [place] [address] Lay Clark, LABORATORY CLERK [address] [place] [address] documented as of this encounter Visit Diagnoses Not on filedocumented in this encounter Care Teams Business English Instructor Relationship Specialty Start Date End Date Lay Clark LABORATORY CLERK [address] [facility] [address] [place] [address] PCP - General NURSE PRACTITIONER 01/23/24 documented as of this encounter
--- OUTSIDE RECORDS SUMMARY | 2024-06-19 22:36 | XMS_ITS | Encounter Summary ---
Author Organization [facility] Address [facility] [place] [address] Care Team Providers Care Manager Sign Name Role Phone Lay Clark COMMERCIAL ASSISTANT Primary Care Provider [phone] Encounter Details Date Type Department Care Team [...] Sex Assigned at Female 06/18/2024 3:01 PM TRUCK ENGINE TECHNICIAN Legal Sex Female 8:26 AM CDT Gender Identity Female 06/18/2024 3:01 PM TRUCK ENGINE TECHNICIAN Sexual Orientation Straight 06/18/2024 3: 01 PM TRUCK ENGINE TECHNICIAN documented as of this encounter Plan of Treatment Upcoming Encounters Date Type Department Care Team (Late st Contact Info) Description 07/16/2024 3:20 PM CDT Office Visit [facility] - [place] [address] [place] [address] Lay Clark NP [address] [place], [place] [address] documented as of this encounter Visit Diagnoses Not on filedocumented in this encounter Care Teams Manager Sign Relationship Specialty Start Date End Date Lay Clark NP [address] [place] [address] PCP - General NURSE PRACTITIONER 01/23/24 documented as of this encounter
--- OUTSIDE RECORDS SUMMARY | 2024-06-19 22:36 | XMS_ITS | Encounter Summary ---
Author Organization [facility] Address [facility] [place] [address] Care Team Providers Care Stake Driver Name Role Phone Brian Clark SYSTEMS MANAGEMENT CONSULTANT Primary Care Provider [phone] Reason for Visit * Reason Comments ER F/U Encounter Details Date Type Department Care Team (Late st Contact Info) Description 06/18/2024 3:00 PM MECHANICAL EQUIPMENT TEST ENGINEER Office Visit [facility] Mult[facility] - [place] [address] [place] [address] Brian Clark, SYSTEMS MANAGEMENT CONSULTANT [address] [place] [address] ER F/U Social History Tobacco [...] Sex Assigned at Female 06/18/2024 3:01 PM MECHANICAL EQUIPMENT TEST ENGINEER Legal Sex Female 8:26 AM CDT Gender Identity Female 06/18/2024 3:01 PM MECHANICAL EQUIPMENT TEST ENGINEER Sexual Orientation Straight 06/18/2024 3: 01 PM MECHANICAL EQUIPMENT TEST ENGINEER documented as of this encounter Last Filed Vital Signs Vital Sign Reading Time Taken Comments Blood Pressure 148/90 06/18/2024 3:36 PM MECHANICAL EQUIPMENT TEST ENGINEER Pulse 100 06/18/2024 3:36 PM MECHANICAL EQUIPMENT TEST ENGINEER Temperature 36.8 C (98.3 F) 06/18/2024 3:01 PM MECHANICAL EQUIPMENT TEST ENGINEER Respiratory Rate 06/18/2024 3:01 PM MECHANICAL EQUIPMENT TEST ENGINEER Oxygen Saturation 96% 06/18/2024 3:01 PM MECHANICAL EQUIPMENT TEST ENGINEER Inhaled Oxygen Concentration - - Weight 193 kg (425 lb 6.4 oz) 06/18/2024 3:01 PM MECHANICAL EQUIPMENT TEST ENGINEER Height 165.1 cm (5' 5 ) 06/18/2024 3:01 PM MECHANICAL EQUIPMENT TEST ENGINEER Body Mass Index 70.79 06/18/2024 3:01 PM MECHANICAL EQUIPMENT TEST ENGINEER documented in this encounter Patient Instructions * Patient Instructions* Brian Clark NP - 06/18/2024 3:00 PM MECHANICAL EQUIPMENT TEST ENGINEER Labs today Follow up in 1 month Refer to alternative obgyn Consider adding iron supplement Follow up in 4-6 weeks ANICAL EQUIPMENT TEST ENGINEER documented in this encounter Progress Notes * [...] while using nuva ring. 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 This includes eygf-wo-gpwn and tyc-cbwo-mi-face time I provided on the day of [...] weight loss medication BRIAN CLARK NP 06/18/2024 [facility] Medical Group, [facility]. ANICAL EQUIPMENT TEST ENGINEER documented in this encounter Plan of Treatment Upcoming Encounters Date Type Department Care Team (Late st Contact Info) Description 07/16/2024 3:20 PM CDT Office Visit [facility] Medical Group Mult[facility]pec[facility]ty Care - [place] [address] [place] [address] Brian Clark NP [address] [place] [address] documented as of this encounter Procedures Procedure Name Priority Date/Time Associated Diagnosis Comments IRON SAT PANEL (IRON,IBC,%SAT) Routine 06/18/2024 3:47 PM MECHANICAL EQUIPMENT TEST ENGINEER Menorrhagia with irregular cycle TRANSFERRIN Routine 06/18/2024 3:47 PM MECHANICAL EQUIPMENT TEST ENGINEER Menorrhagia with irregular cycle CBC W/DIFF AUTOMATED Routine 06/18/2024 3:47 PM MECHANICAL EQUIPMENT TEST ENGINEER Menorrhagia with irregular cycle FERRITIN Routine 06/18/2024 3:47 PM MECHANICAL EQUIPMENT TEST ENGINEER Menorrhagia with irregular cycle documented in this encounter Results * (ABNORMAL) CBC W/DIFF AUTOMATED (06/18/2024 3:47 PM MECHANICAL EQUIPMENT TEST ENGINEER) WBC 8.79 4.00 - 10.80 x10'3/uL 06/18/2024 7:42 PM MECHANICAL EQUIPMENT TEST ENGINEER [facility] RBC 4.70 4.10 - 5.40 x10'6/uL 06/18/2024 7:42 PM MECHANICAL EQUIPMENT TEST ENGINEER [facility] HGB 12.9 12.0 - 16.0 G/DL 06/18/2024 7:42 PM MECHANICAL EQUIPMENT TEST ENGINEER [facility] HCT 40.1 36.0 - 47.0 % 06/18/2024 7:42 PM MECHANICAL EQUIPMENT TEST ENGINEER [facility] MCV 85.3 78.0 - 100.0 FL 06/18/2024 7:42 PM MECHANICAL EQUIPMENT TEST ENGINEER [facility] MCH 27.4 27.0 - 31.0 PG 06/18/2024 7:42 PM [facility] MCHC 32.2(L) 33.0 - 36.0 G/DL 06/18/2024 7:42 PM [facility] RDW 14.9(H) 11.5 - 14.5 % 06/18/2024 7:42 PM [facility] PLT 304 150 - 350 x10'3/uL 06/18/2024 7:42 PM [facility] MPV 11.9(H) 7.4 - 10.4 FL 06/18/2024 7:42 PM [facility] DIFFERENTIAL TYPE AUTOMATED DIFFERENTIAL 06/18/2024 7:42 PM [facility] NEUTROPHILS % 63.1 % 06/18/2024 7:42 PM [facility] LYMPHOCYTES % 29.9 % 06/18/2024 7:42 PM [facility] MONOCYTES % 4.2 % 06/18/2024 7:42 PM [facility] EOSINOPHILS % 2.6 % 06/18/2024 7:42 PM [facility] BASOPHILS % 0.2 % 06/18/2024 7:42 PM [facility] IMMATURE GRANS % 0.0 % 06/18/2024 7:42 PM [facility] ABS. NEUTROPHILS 5.54 1.60 - 8.30 x10'3/uL 06/18/2024 7:42 PM [facility] ABS. LYMPHOCYTES 2.63 0.80 - 4.70 x10'3/uL 06/18/2024 7:42 PM [facility] ABS. MONOCYTES 0.37 0.00 - 1.50 x10'3/uL 06/18/2024 7:42 PM [facility] ABS. EOSINOPHILS 0.23 0.00 - 0.40 x10'3/uL 06/18/2024 7:42 PM MECHANICAL EQUIPMENT TEST ENGINEER [facility] ABS. BASOPHILS 0.02 0.00 - 0.20 x10'3/uL 06/18/2024 7:42 PM MECHANICAL EQUIPMENT TEST ENGINEER [facility] ABS. IMMATURE GRANULOCYTES 0.00 0.00 - 0.03 x10'3/uL 06/18/2024 7:42 PM MECHANICAL EQUIPMENT TEST ENGINEER [facility] 06/18/2024 3:47 PM MECHANICAL EQUIPMENT TEST ENGINEER us Brian Clark NP LABORATORY Final Resul t Performing Organization Address City/[facility]/ZIP Co de Phone Number [facility] [address] [place] [address], [place] [phone] * FERRITIN (06/18/2024 3:47 PM MECHANICAL EQUIPMENT TEST ENGINEER) FERRITIN 180.0 8 - 252 NG/ML 06/18/2024 7:39 PM MECHANICAL EQUIPMENT TEST ENGINEER [facility] 06/18/2024 3:47 PM MECHANICAL EQUIPMENT TEST ENGINEER us Brian Clark NP LABORATORY Final Resul t Performing Organization Address [facility]/ZIP Co de Phone Number [place] [id number] [place] [address], [place] [phone] * TRANSFERRIN (06/18/2024 3:47 PM MECHANICAL EQUIPMENT TEST ENGINEER) TRANSFERRIN 356 200 - 360 mg/dL 06/19/2024 5:47 PM MECHANICAL EQUIPMENT TEST ENGINEER [facility] 06/18/2024 3:47 PM MECHANICAL EQUIPMENT TEST ENGINEER us Brian Clark NP LABORATORY Final Resul t Performing Organization Address City/[facility]/ZIP Co de Phone Number [facility] [address] [place] [address], [place] [phone] * IRON SAT PANEL (IRON,IBC,%SAT) (06/18/2024 3:47 PM MECHANICAL EQUIPMENT TEST ENGINEER) IRON 61 50 - 170 MCG/DL 06/18/2024 7:39 PM MECHANICAL EQUIPMENT TEST ENGINEER [facility] IRON BINDING CAPACITY 418 250 - 450 MCG/DL 06/18/2024 7:39 PM MECHANICAL EQUIPMENT TEST ENGINEER [facility] IRON SATURATION 15 % 7:39 PM MECHANICAL EQUIPMENT TEST ENGINEER [facility] Comment:REFERENCE RANGE NOT ESTABLISHED 06/18/2024 3:47 PM MECHANICAL EQUIPMENT TEST ENGINEER Brian Clark NP LABORATORY Final Resul t [facility] [address] [place] [address], documented in this encounter Visit Diagnoses Diagnosis [...] irregular cycle,Abdominal cramping Given 06/18/2024 4:13 PM MECHANICAL EQUIPMENT TEST ENGINEER 60 mg Right Dorsal Gluteal documented in this encounter Care Teams Stake Driver Relationship Specialty Start Date End Date Brian Clark, SYSTEMS MANAGEMENT CONSULTANT [address] [place] [address] PCP - General NURSE PRACTITIONER 01/23/24 documented as of this encounter
--- OUTSIDE RECORDS SUMMARY | 2024-06-19 22:36 | XMS_ITS | Encounter Summary ---
Author Organization [facility] Address [facility] [place] [address] Care Team Providers Care Iron Worker Foreman Name Role Phone Lay Clark TV PRODUCTION ASSISTANT Primary Care Provider [phone] Encounter Details Date Type Department Care Team (Latest Contact Info) Description 06/19/2024 [facility] [address] [place], [place] [id number] Lay Clark, FOUZIA [address] [place], [place] [id number] Medication question? Social History Tobacco Use Types Packs/Day Years Used Date Smoking Tobacco: Never Smokeless Tobacco: Never Alcohol Use Standard Drinks/Week Comments Not Currently 0 (1 standard drink = 0.6 oz pur e alcohol) PHQ-2 Answer Date Recorded Patient Health Questionnaire-2 Score 0 01/23/2024 Comments No Sex and Gender Information Value Date Recorded Sex Assigned at Female 06/18/2024 3:01 PM PRESS OPERATOR [employer] Legal Sex Female 8:26 AM CDT Gender Identity Female 06/18/2024 3:01 PM PRESS OPERATOR [employer] SH[employer] Sexual Orientation Straight 06/18/2024 3: 01 PM PRESS OPERATOR IN[employer]ANT [employer] SHOP documented as of this encounter Plan of Treatment Upcoming Encounters Date Type Department Care Team (Late st Contact Info) Description 07/16/2024 3:20 PM CDT [facility] [address] [place], [place] [id number] Lay Clark NP [address] [place] [address] documented as of this encounter Visit Diagnoses Not on filedocumented in this encounter Care Teams Iron Worker Foreman Relationship Specialty Start Date End Date Lay Clark, TV PRODUCTION ASSISTANT [address] [facility] [address] [place] [address] PCP - General NURSE PRACTITIONER 01/23/24 documented as of this encounter
[2024-06-19 22:42] LABS: Alanine Aminotransferase 32 U/L (6-35); Albumin Level 3.6 g/dL (3.5-5.1); Alkaline Phosphatase 112 U/L (38-126); Anion Gap 6 mmol/L (4-12); Aspartate Amino Transferase 29 U/L (14-36); Bilirubin,Total 0.4 mg/dL (0.2-1.3); Blood Urea Nitrogen 10 mg/dL (7-17); Calcium 8.7 mg/dL (8.4-10.2); Carbon Dioxide 26 mmol/L (22-30); Chloride 107 mmol/L (98-107); Estimated CRCL calculation 169 ml/min; Estimated Glomerular Filt Rate > 60; Glucose 107 mg/dL (65-110); Potassium 3.7 mmol/L (3.4-5.0); Sodium 139 mmol/L (137-145)
--- NOTE | 2024-06-19 23:07 | PC.NURSE ---
care and report given to RAKESH Sosa. all questions answered.
--- NOTE | 2024-06-19 23:40 | ED.SYNCOPE ---
HPI - Syncope General Chief Complaint: Syncope Stated Complaint: syncopal episodes Time Seen by Provider: 06/19/24 22:21 History of Present Illness HPI narrative: Patient is a 29-year-old female who presents to the ER with complaints a headache, syncopal episodes, and heavy menstrual bleeding. She reports she was here days ago after having a syncopal episode in hitting her head. Patient reports she was discharged home. She spoke with her primary care provider since her ER visit and they advised her to take out her NuvaRing since she was having such heavy vaginal bleeding. Patient reports she took the NuvaRing out last night and has since had menstrual periods where she is filling ?a pad and a super tampon in an hour. She reports she has an appointment with an OBGYN but was unable to get in until July. Patient reports she has ?passed out twice today but did not hit her head. She reports she is not currently on any control. Patient endorses a history of a left forearm fracture, anxiety, depression. Related Data Allergies Allergy/AdvReac Type Severity Reaction Status Date / Time No Known Allergies Allergy Verified 06/17/24 16:36 Review of Systems Review of Systems: All systems reviewed & are unremarkable except as noted in HPI and below PMFSH Past Medical History Medical History Anxiety Depression History of kidney stones Bipolar 1 disorder Surgical History Surgical History History of surgery on arm [place] teeth extracted Family History Family History Grandparent Breast cancer Other Breast cancer Other Cerebrovascular accident Diabetes mellitus Heart disease Hypertension Social History Social History Smoking status: Never smoker Alcohol intake: never Substance use type: does not use Living arrangements: with family Occupation/Education: occupation 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 HEAD: Normocephalic, atraumatic. NECK: Supple. No adenopathy, no masses. RESPIRATORY: Airway patent, respirations nonlabored. Clear to auscultation bilaterally, no rales, rhonchi, wheezing. CARDIOVASCULAR: Regular rate and rhythm without murmurs, rubs, or gallops. Peripheral pulses 2+ and equal bilaterally. ABDOMINAL: Soft, tender in lower pelvis with palpation, nondistended, no hepatosplenomegaly. Normoactive BS. MUSCULOSKELETAL: Moves all extremities. Strength/ROM intact without gross deformities. SKIN: Warm, dry, normal color. No rashes. NEURO: A&O X3. Speech clear. Cranial nerves II-XII grossly intact. No ataxic movements. PSYCHIATRIC: Tearful. Normal interaction. Course Vital Signs Vital signs: Vital Signs Temperature 36.5 C 06/19/24 21:16 Pulse Rate 104 H 06/19/24 21:16 Respiratory Rate 16 06/19/24 21:16 Blood Pressure 162/96 H 06/19/24 21:16 Pulse Oximetry 100 06/19/24 21:16 Oxygen Delivery Room Air 06/19/24 21:16 Temperature 36.5 C 06/19/24 21:16 Pulse Rate 91 06/20/24 00:34 Respiratory Rate 17 06/20/24 00:34 Blood Pressure 145/95 H 06/20/24 00:34 Pulse Oximetry 98 06/20/24 00:34 Oxygen Delivery Room Air 06/19/24 22:26 MDM - Syncope MDM Narrative Medical decision making narrative: Patient is a 29-year-old female who presents to the ER with complaints a headache, syncopal episodes, and heavy menstrual bleeding. She reports she was here days ago after having a syncopal episode in hitting her head. Patient reports she was discharged home. She spoke with her primary care provider since her ER visit and they advised her to take out her NuvaRing since she was having such heavy vaginal bleeding. Patient reports she took the NuvaRing out last night and has since had menstrual periods where she is filling ?a pad and a super tampon in an hour. She reports she has an appointment with an OBGYN but was unable to get in until July. Patient reports she has ?passed out twice today but did not hit her head. She reports she is not currently on any control. Patient endorses a history of a left forearm fracture, anxiety, depression. Labs Ordered: CBC, CMP, TSH Imaging Ordered: CT abdomen pelvis Medications Ordered: Reglan 10mg IV, Benadryl 25mg IV, 1 L IV normal saline, Toradol 15 mg IV Results: Patient's CT abdomen pelvis was negative for any acute abnormalities Diagnosis: Heavy menstrual bleeding Consults: None necessary Patient Education/Shared MDM: Results shared with patient. She endorses headache improvement following medication administration. Patient is requesting to be discharged home. She denies any chest pain or current signs/symptoms of dizziness. Patient strongly advised to maintain hydration status upon discharge and follow-up with her PCP and OBGYN as soon as possible. She will be discharged home with a prescription for Ibuprofen 800mg PO TID. Strict return precautions provided. Patient verbalized understanding is in agreement with plan. Vital signs stable at time of discharge. All questions answered. Differential Diagnosis Differential diagnosis: Likely syncope due to orthostatic hypotension, vasovagal syncope, dehydration and other (anemia, heavy vaginal bleeding) Lab Data Attestation: I reviewed the patient's lab results. 06/19/24 22:23 06/19/24 22:23 Labs: Lab Results 06/19/24 06/19/24 Range/Units 22:23 23:47 WBC 9.5 (4.5-10.0) K/mm3 RBC 4.40 (4.2-5.4) M/mm3 Hgb 12.0 (12.0-15.0) g/dL Hct 37.8 (37.0-47.0) % MCV 85.9 (80-100) fl MCH 27.3 (26-34) pg MCHC 31.7 L (32-36) g/dl RDW 15.1 H (11.5-14.5) % Plt Count 271 (150-375) k/mm3 MPV 11.0 H (7.4-10.4) fl Immature Gran % (Auto) 0.2 (0-0.5) % Neut % (Auto) 52.4 (45.5-73.1) % Lymph % (Auto) 38.6 (18.3-44.2) % [place] % (Auto) 6.8 (2.6-8.5) % Eos % (Auto) 1.8 (0-4.4) % Baso % (Auto) 0.2 (0.2-1.2) % Lymph # (Auto) 3.66 H (0.9-3.2) K/mm3 [place] # (Auto) 0.6 (0.1-0.6) K/mm3 Eos # (Auto) 0.2 (0-0.3) K/mm3 Baso # (Auto) 0.0 (0.0-0.1) K/mm3 Abs Immat Gran (auto) 0.02 (0.00-0.031) K/mm3 Absolute Neuts (auto) 5.0 (1.3-6.7) K/mm3 Absolute Nucleated RBC 0.000 (0.0-0.012) K/mm3 Nucleated RBC % 0.0 (0.0-0.2) % Sodium 139 (137-145) mmol/L Potassium 3.7 (3.4-5.0) mmol/L Chloride 107 (98-107) mmol/L Carbon Dioxide 26 (22-30) mmol/L Anion Gap 6 (4-12) mmol/L BUN 10 (7-17) mg/dL Creatinine 0.73 (0.7-1.0) mg/dL Estim Creat Clear Calc 169 ml/min Estimated GFR > 60 (59 - ) Glucose 107 (65-110) mg/dL Calcium 8.7 (8.4-10.2) mg/dL Total Bilirubin 0.4 (0.2-1.3) mg/dL AST 29 (14-36) U/L ALT 32 (6-35) U/L Alkaline Phosphatase 112 (38-126) U/L Total Protein 7.0 (6.3-8.2) g/dL Albumin 3.6 (3.5-5.1) g/dL TSH (Reflex) 2.630 (0.465-4.68) uIU/mL POC Urine HCG, Qual Negative (Negative) Imaging Data Attestation: I personally reviewed and interpreted this imaging study as follows: My impression: Patient's abdomen/pelvis CT scan was negative for acute abnormalities. Discharge Plan Discharge Clinical Impression: Menstrual bleeding problem, Headache, Mild dehydration Patient Disposition: Home, Self-Care Condition: Stable Instructions: Antibiotic Form, Syncope (ED), Menorrhagia (ED) Additional Instructions: Please return to the ER with an worsening symptoms. Follow-up with primary care provider in the next 2-3 days and OBGYN as soon as possible. Take all medications as prescribed. Please take Ibuprofen 800mg PO every eight hours scheduled to help relieve vaginal bleeding. Patient Language: Citizen Of [place] Prescriptions: New ibuprofen 800 mg tablet 800 mg PO TID PRN (Reason: pain) Qty: 30 0RF Follow-up/Referrals: Cachorro Lopez MD [Physician] - (OBGYN) UNKNOWN,DOCTOR [Primary Care Provider] - Time of Disposition: 02:08
[2024-06-19] MEDS: SODIUM CHLORIDE 0.9% IV 1,000 ML 999 ML IV CONT (23:46)
[2024-06-19] MEDS: KETOROLAC 15 MG/ML VIAL (*BKC) IV PUSH (23:46)
[2024-06-19 23:48] LABS: BEDSIDEPREGUCG Negative (Negative)
[2024-06-19] MEDS: diphenhydrAMINE HCl INJ 50 MG/ML VIAL 25 MG IV PUSH (23:52)
[2024-06-19] MEDS: METOCLOPRAMIDE HCL INJ 10 MG/2 ML VIAL IV PUSH (23:52)
[2024-06-20 00:34] VITALS: BP 145/95; PULSE 91; RESP 17; O2SAT 98
--- NOTE | 2024-06-20 04:18 | PC.NURSE ---
PT DC DURING DOWNTIME. PT AMBULATORY OUT OF DEPT W AMBULATORY GAIT AND S/O BY SIDE.
== END 2024-06-20 04:18 | disposition home or self-care (01) ==
PROVIDERS: Emergency Medicine; Emergency Provider Registered Nurse
DX: R51.9 Headache, unspecified (principal); N92.0 Excessive and frequent menstruation with regular cycle; E86.0 Dehydration; Z87.442 Personal history of urinary calculi
CPT/HCPCS: 36415; 71046; 74177; 80053; 81025; 84443; 85025; 93005; 96361; 96374; 96375; 99284; J1200; J1885; J2765; J7030; Q9967